=== PATIENT | female | born 1965 | race Caucasian/White ===

== ENCOUNTER 2024-07-17 22:40 | Emergency (ER) | payer OTHER, SELFPAY ==
--- NOTE | 2024-07-17 | ECG_ITS ---
Test Reason : FAST HR Blood Pressure : */* mmHG Vent. Rate : 109 BPM Atrial Rate : 109 BPM P-R Int : 158 ms QRS Dur : 94 ms QT Int : 344 ms P-R-T Axes : 54 21 75 degrees QTcB Int : 463 ms Sinus tachycardia Minimal voltage criteria for LVH, may be normal variant ( German product ) Nonspecific ST abnormality Abnormal ECG No previous ECGs available Referred By: Generic ED Physician Electronically Signed By: LINDA ROMEO
--- NOTE | ~2024-07-17 | XR_ITS ---
CLINICAL HISTORY: sob 2 view chest x-ray. Comparison: CT/MI/SR - CTA CHEST WOW RECON [id number] - 08/29/17 21:33 EDT Findings: No consolidation, pneumothorax, or effusion. Heart size normal. Impression: 1. No acute cardiopulmonary process. No focal pulmonary consolidation. This document has been electronically signed by: Ruddy Bustillo MD on 07/17/2024 23:25:13
[2024-07-17 22:43] VITALS: BP 155/68; PULSE 116; RESP 20; TEMP 37.2; O2SAT 95; BMI 39.2
[2024-07-17 23:08] LABS: Basophils Absolute Auto 0.1 X10*3/uL (0.0-0.2); Basophils Percent Auto 0.7 % (0-2); Eosinophils Absolute Auto 0.4 X10*3/uL (0.0-0.4); Eosinophils Percent Auto 3.9 % (0-4); Hematocrit 40.3 % (37.0-47.0); Hemoglobin 14.5 g/dl (12.0-16.0); Imm Gran Abs Auto 0.03 X10*3/uL (0.00-0.03); Imm Gran Pct Auto 0.3 % (0.0-0.4); Lymphocytes Absolute Auto 1.1 X10*3/uL (1.2-4.9); Lymphocytes Percent Auto 11.5 % (20-40); MANUAL DIFF FLAG NO; Mean Corpuscular Hemoglobin 30.9 pg (27.0-33.0); Mean Corpuscular Volume 85.9 fL (80.0-98.0); Mean Platelet Volume 9.3 fL (9.4-12.3); Monocytes Absolute Auto 0.7 X10*3/uL (0.1-1.2); Monocytes Percent Auto 8.1 % (2-11); Neutrophils Absolute Auto 6.9 x10*3/uL (2.0-8.3); Neutrophils Percent Auto 75.5 % (45-73); Platelet Count 264 X10*3/uL (160-400); Red Blood Count 4.69 X10*6/uL (4.20-5.50); Red Cell Distribution Width 12.8 % (11.0-16.0); White Blood Count 9.1 X10*3/uL (4.8-10.8)
[2024-07-17 23:23] LABS: Alanine Aminotransferase 34 U/L (0-31); Albumin Level 4.1 g/dL (3.5-5.0); Alkaline Phosphatase 109 U/L (39-117); Anion Gap 10 (12-20); Aspartate Amino Transferase 36 U/L (5-31); Bilirubin Total 0.4 mg/dL (0.0-1.0); Blood Urea Nitrogen 7 mg/dL (9-16); Calcium 9.4 mg/dL (8.4-10.2); Carbon Dioxide 24 mmol/L (22-29); Chloride 108 mmol/L (96-108); Creatinine Clr Calc Pharmacy 126.1; Estimated Glomerular Filt Rate > 60; Glucose Random 111 mg/dL (60-115); Lipase 17 U/L (8-78); Potassium 3.6 mmol/L (3.3-5.1); Sodium 138 mmol/L (135-145); Total Protein 7.6 g/dL (6.5-8.0)
[2024-07-17 23:45] LABS: Influenza A PCR NEGATIVE (Negative); Influenza B PCR NEGATIVE (Negative); Resp Syncy Virus RNA Qual PCR NEGATIVE (Negative); SARS COV2 PCR INHOUSE POSITIVE (Negative)
--- NOTE | 2024-07-18 01:21 | ED.GENADULT ---
HPI - General Adult General Chief complaint: General Medical Stated complaint: fever, elevated heart rate Time Seen by Provider: 07/18/24 01:21 History of Present Illness ED Provider: Tam ROB narrative: The patient is 59 year-old female who has been feeling acutely ill since about 04:00 this morning when she developed a sense of being feverish and also had a sense of having a stuffy nose and congestion and dizziness. She took ibuprofen and acetaminophen throughout the day. She also felt that her heart rate was going very fast. She has had subjective fevers, chills, and sweats. No adin chest pain. No nausea, vomiting, or abdominal pain. The patient reports a history of breast cancer many years ago. Her last COVID vaccine was about 2 years ago she estimates. Related Data Previous Rx's ?Medication ?Instructions ?Recorded nirmatrelvir 300 mg (150 mg See Rx Instructions PO .COMPLEX 07/18/24 x2)-ritonavir 100 mg tablet,dose #30 ea pack (Paxlovid) Allergies Allergy/AdvReac Type Severity Reaction Status Date / Time paclitaxel [From Taxol] Allergy Anaphylaxis Verified 07/17/24 22:46 Review of Systems Review of Systems: Yes all other systems are reviewed and are negative PMFSH Social History Social History Advance Directives: No Advance Directives Information Provided: Yes Do you have a plan to hurt others: No Plan Physical Exam ED Vital Signs: Vital Signs - 24 hr 07/17/24 22:43 07/18/24 02:02 07/18/24 02:03 Temperature 99 F 98.3 F 98.4 F Pulse Rate 116 H 82 82 Respiratory Rate 20 16 16 Blood Pressure 155/68 H 152/64 H 152/64 H Pulse Oximetry 95 99 99 Oxygen Delivery Method Room Air Room Air Room Air BMI result Body Mass Index 39.2 Const Other: The patient is awake, alert, pleasant, cooperative. She does not appear in obvious distress or seem obviously ill at the time that I interviewed her. [facility] Other: Face is symmetrical. Mucous membranes moist. Eyes General: appearance normal, both eyes and all related structures Neck Neck: Yes full ROM, Yes no lymphadenopathy and Yes no JVD Resp Effort & Inspection: normal respiratory effort Auscultation: clear to auscultation bilaterally Cardio Rate: regular rate Rhythm: regular rhythm Heart sounds: S1 normal heart sound present and S2 normal heart sound present GI Other: Abdomen is soft and nontender Skin Other: Skin is dry and unremarkable Neuro Other: The patient is awake and alert with a normal mental status. Cranial nerves are grossly intact. She moves extremities normally and seems grossly neurologically intact. Extrem Other: No peripheral edema Medical Decision Making Medical Decision Making MDM Narrative: The patient is a 59-year-old female who presents with an acute illness of less than 24 hours duration. She is testing positive for COVID. I think that is the source of her symptoms. She had initially been complaining of palpitations and tachycardia. Her heart rate when she arrived was 116. An EKG at 08/10/2057 shows sinus tachycardia at 109 beats per minute. When I examined the patient her heart rate was 88. Clinically the the patient does not look unstable or unwell. Her chest x-ray is negative. Her CBC and metabolic panel are unremarkable. I think her presentation is consistent with a an acute COVID infection. She would like to go on Paxlovid. Her only daily medications are lisinopril and hydrochlorothiazide. They do not seem to be any concerning interactions with Paxlovid. I will therefore prescribed Paxlovid. Unfortunately the patient does not seem to have a PCP at the moment. She tells me that she has insurance through her but that even with this insurance flowing to the doctor is very expensive and therefore she does not have a PCP. She says that she gets her lisinopril/hydrochlorothiazide refilled at urgent care. Lab Data 07/17/24 23:03 07/17/24 23:03 Labs: Lab Results 07/17/24 Range/Units 23:03 WBC 9.1 (4.8-10.8) X10*3/uL RBC 4.69 (4.20-5.50) X10*6/uL Hgb 14.5 (12.0-16.0) g/dl Hct 40.3 (37.0-47.0) % MCV 85.9 (80.0-98.0) fL MCH 30.9 (27.0-33.0) pg MCHC 36.0 H (31.0-35.0) g/dl RDW 12.8 (11.0-16.0) % Plt Count 264 (160-400) X10*3/uL MPV 9.3 L (9.4-12.3) fL Immature Gran % (Auto) 0.3 (0.0-0.4) % Neut % (Auto) 75.5 H (45-73) % Lymph % (Auto) 11.5 L (20-40) % Assumption % (Auto) 8.1 (2-11) % Eos % (Auto) 3.9 (0-4) % Baso % (Auto) 0.7 (0-2) % Lymph # (Auto) 1.1 L (1.2-4.9) X10*3/uL Assumption # (Auto) 0.7 (0.1-1.2) X10*3/uL Eos # (Auto) 0.4 (0.0-0.4) X10*3/uL Baso # (Auto) 0.1 (0.0-0.2) X10*3/uL Abs Immat Gran (auto) 0.03 (0.00-0.03) X10*3/uL Absolute Neuts (auto) 6.9 (2.0-8.3) x10*3/uL Absolute Nucleated RBC 0.000 (0.0-0.012) X10*3/uL Nucleated RBC % (auto) 0.0 (0.0-0.2) /100WBC Sodium 138 (135-145) mmol/L Potassium 3.6 (3.3-5.1) mmol/L Chloride 108 (96-108) mmol/L Carbon Dioxide 24 (22-29) mmol/L Anion Gap 10 L (12-20) BUN 7 L (9-16) mg/dL Creatinine 0.70 (0.5-1.4) mg/dL Estim Creat Clear Calc 126.1 Estimated GFR > 60 Random Glucose 111 (60-115) mg/dL Calcium 9.4 (8.4-10.2) mg/dL Total Bilirubin 0.4 (0.0-1.0) mg/dL AST 36 H (5-31) U/L ALT 34 H (0-31) U/L Alkaline Phosphatase 109 (39-117) U/L Total Protein 7.6 (6.5-8.0) g/dL Albumin 4.1 (3.5-5.0) g/dL Lipase 17 (8-78) U/L Influenza Type A (PCR) NEGATIVE (Negative) Influenza Type B (PCR) NEGATIVE (Negative) RSV RNA Qual (PCR) NEGATIVE (Negative) SARS-CoV-2 RNA (RT-PCR) POSITIVE A (Negative) Discharge Plan Discharge Clinical Impression: COVID Patient Disposition: Home, Self-Care Instructions: COVID-19 (Coronavirus Disease 2019) (ED) Additional Instructions: You have tested positive for COVID today. I have sent a prescription for Paxlovid to your pharmacy. Please start taking this medication as prescribed in the morning. This medication should be taken 2 times a day for 5 days. The medication is unusual because it consists of 2 medications, nirmatrelvir and ritonavir. You will be taking 2 pills of nirmatrelvir and 1 pill of ritonovir with each dose. Therefore you will be taking 3 pills with each dose (3 pills in the morning and 3 pills in the evening). You may use ibuprofen and/or acetaminophen as needed for aches and pains and fevers. Rest and take it easy. Drink a lot of fluids. Return to the emergency room if worse Prescriptions: New Paxlovid 300 mg (150 mg x 2)-100 mg tablets,dose pack See Rx Instructions .ROUTE .COMPLEX Qty: 30 0RF Rx Instructions: take TWO 150 mg tablets of nirmatrelvir with ONE 100 mg tablet of ritonavir twice daily for 5 days Interventions: ED Discharge Assessment Last Done: 07/18/24 02:03 Discharge Date/Time: 07/18/24 02:03 Print Language: Nigerien
[2024-07-18 02:02] VITALS: BP 152/64; PULSE 82; RESP 16; TEMP 36.8; O2SAT 99
[2024-07-18 02:03] VITALS: BP 152/64; PULSE 82; RESP 16; TEMP 36.9; O2SAT 99
--- OUTSIDE RECORDS SUMMARY | 2024-07-18 02:04 | XMS_ITS | Clinical Summary ---
Author Organization [facility] Address [address] [place] [address] Care Team Providers Care Defence Force Senior Officer Name Role Phone Unavailable Primary Care Provider Unavailabl e Surgical History Surgery Date Site/Laterality Comments CHOLECYSTECTOMY 1989 PROCEDURE: HISTORICAL CHOLECYSTECTOMY SECTION 1989 PROCEDURE: [facility] Medical History Medical History Date Comments Asthma DX:Asthma; COMME NT: exercise induced Unspecified asthma(493.90) 12/05/2007 DX:Un specified asthma(493.90); COMMENT: EXERCISE INDUCED Obesity, unspecified 12/05/2007 DX:Obesity, unspecified Essential hypertension, benign 12/05/2007 D X:Essential hypertension, benign Family History Relation Name Status Comments Brother 1 (Age 31) MS Brother 2 Alive MANIC DEPRESSIV E Brother 3 Alive Brother 4 Alive Daughter Alive [id number] RING LOSS INFANT Father Alive GLAUCOMA Maternal Grandfather (Age 69) IN Maternal Grandmother (Age 62) IN Mother Alive CHF, DM, CHOL, HTN, BIPOLAR Paternal Grandfather (Age 81) EM PHYSEMA, PANCREATIC CA Paternal Grandmother (Age 60'S) IN Sister Alive Son 1 Alive 1983-HERNAN- AD HD Son 2 Alive 1986-MORENA- THMA Son 3 Alive 1987-CHRISTIA-, ADHD Social History Tobacco Use Types Packs/Day Years Used Date Smoking Tobacco: Every Day Cigarettes Alcohol Use Standard Drinks/Week Comments Yes 0 (1 standard drink = 0.6 oz pur e alcohol) Sex and Gender Information Value Date Recorded Sex Assigned at Not on file Gender Identity Not on file Sexual Orientation Not on file Obstetrics History Plan of Treatment Health Maintenance Due Date Last Done Comments Breast Cancer Screening 1965 Pneumococcal Vaccine: Pediat rics (0 to 5 Years) and At-Risk Patients (6 to 64 Years) (1 of 2 - PCV) 01/12/1970 DTaP,Tdap,and Td Vaccines (1 - Tdap) 01/12/1983 Cervical Cancer Screening: P ap Smear 01/12/1985 Hepatitis B Vaccines (2 of 3 - 19+ 3-dose series) 01/02/2008 12/05/2007 Zoster Vaccines (1 of 2) 01/12/2014 Cholesterol Screening (Lipid Panel) 07/20/2023 Colorectal Cancer Screening: Colonoscopy 07/20/2023 Depression Screening 07/20/2023 HIV Screening 07/20/2023 Hepatitis C Screening 07/20/2023 Hypertension/CHF/CAD Annual BMP Blood Test 07/20/2023 Social Influencers of Health Screening 07/20/2023 RSV Immunization Patients 60 + Years Old (1 - Risk 60-74 years 1-dose series) 2024 COVID-19 Vaccine ( - 2023-2 5 season) 2024 Influenza Vaccine (#1) 2024 HIB Vaccines Aged Out No longer eligi ble based on patient's age to complete this topic HPV Vaccines Aged Out No longer eligi ble based on patient's age to complete this topic Hepatitis A Vaccines Aged Out No long er eligible based on patient's age to complete this topic IPV Vaccines Aged Out No longer eligi ble based on patient's age to complete this topic MMR Vaccines Aged Out No longer eligi ble based on patient's age to complete this topic Meningococcal ACWY Vaccine Aged Out N o longer eligible based on patient's age to complete this topic RSV Immunization Patients Un tonja 20 months Aged Out No longer eligible b ased on patient's age to complete this topic Varicella Vaccines Aged Out No longer eligible based on patient's age to complete this topic
== END 2024-07-18 02:03 | disposition home or self-care (01) ==
PROVIDERS: Emergency Provider Emergency Medicine
DX: U07.1 COVID-19 (principal); R50.9 Fever, unspecified; R00.0 Tachycardia, unspecified
CPT/HCPCS: 0241U; 71046; 80053; 83690; 85025; 93005; 99283; 99284

== ENCOUNTER → 2024-07-17 22:50 | Outpatient (BNV) | payer SELFPAY | PROVIDERS: Visit Provider Radiology Diagnostic Radiology | DX: R06.02 Shortness of breath (principal) | CPT/HCPCS: 71046 ==

== ENCOUNTER → 2024-07-17 22:58 | Outpatient (BNV) | payer OTHER, SELFPAY | PROVIDERS: Emergency Provider Emergency Medicine; Visit Provider Internal Medicine | DX: R94.31 Abnormal electrocardiogram [ECG] [EKG] (principal) | CPT/HCPCS: 93010 ==

== ENCOUNTER 2024-09-25 11:24 | Emergency (ER) | payer OTHER, SELFPAY ==
--- NOTE | ~2024-09-25 | XR_ITS ---
EXAMINATION: XR ABDOMEN 1 VIEW (KUB) HISTORY: constipation COMPARISON: There are no prior studies for comparison. FINDINGS: Three supine views of the abdomen are submitted. The bowel gas pattern is unremarkable, without evidence of mechanical obstruction. There is a small to moderate amount of stool throughout the colon. No abnormal calcifications are identified. There are no abnormal soft tissue masses. There is degenerative disc disease of the spine. XR/XR KUB IMPRESSION: Small to moderate amount of stool throughout the colon. Electronically signed by: Betito Medley MD 09/25/2024 01:16 PM EDT
[2024-09-25 11:41] VITALS: BP 147/56; PULSE 94; RESP 16; TEMP 37; O2SAT 96; BMI 36.6
--- NOTE | 2024-09-25 11:46 | ED_ITS ---
HPI - Female Genitourinary General Chief complaint: Urogenital-Female Stated complaint: unable to urinate Time Seen by Provider: 09/25/24 16:11 Source: patient Mode of arrival: ambulatory Limitations: no limitations History of Present Illness ED Provider: HPI Narrative: Patient with stress incontinence feels some something not right and on and she had not urinating right for last 3 days has low back pain afraid that patient might have infection no fever no chills no nausea no vomiting Related Data Previous Rx's ?Medication ?Instructions ?Recorded nirmatrelvir 300 mg (150 mg See Rx Instructions PO .COMPLEX 07/18/24 x2)-ritonavir 100 mg tablet,dose #30 ea pack (Paxlovid) Allergies Allergy/AdvReac Type Severity Reaction Status Date / Time paclitaxel [From Taxol] Allergy Anaphylaxis Verified 09/25/24 11:43 Review of Systems 2 Review of Systems: Yes all other systems are reviewed and are negative Physical Exam 2 Vital Signs: Vital Signs: Last Vital Signs Temp 97.5 F 09/25/24 17:44 Pulse 80 09/25/24 17:44 Resp 14 09/25/24 17:44 BP 149/72 H 09/25/24 17:44 Pulse Ox 96 09/25/24 17:44 O2 Del Method Room Air 09/25/24 17:44 BMI result Body Mass Index 36.6 Appearance: Alert. Oriented X3. No acute distress. Obese Eyes: PERRLA, No Nystagmus ENT: Pharynx normal. Oral Mucosa moist Neck: Normal inspection. Neck supple. CVS: Normal heart rate and rhythm. Pulses normal. Respiratory: No respiratory distress. Equal air entry bilateral, no wheezing/rales/rhonchi Abdomen: Soft and nontender. Bowel sounds are present, no mass palpable, no CVA tenderness Skin: Skin warm and dry. Normal skin color. Normal skin turgor. Extremities: No lower extremity edema. No calf tenderness Neuro: Oriented X 3. No motor deficit. No sensory deficit.No cerebellar signs , cranial nerves II-XII intact Course Course Course Narrative: RME: 59-year-old female presents to the ED for urinary retention for 3 days. Patient is incontinent at baseline. Patient states last bowel movement 2 days. Bladder scan, labs, XRay ordered Medical Decision Making Medical Decision Making MDM Narrative: Patient with no signs of infection urine is negative for UTI likely symptoms are from urinary incontinence advised to follow with urologist bladder scan was showed no urine post voidal Lab Data MDM Lab Attestation statement: I reviewed the patient's lab results. 09/25/24 11:56 09/25/24 11:56 Labs: Lab Results 09/25/24 09/25/24 Range/Units 11:56 17:18 WBC 7.9 (4.8-10.8) X10*3/uL RBC 4.31 (4.20-5.50) X10*6/uL Hgb 13.6 (12.0-16.0) g/dl Hct 38.5 (37.0-47.0) % MCV 89.3 (80.0-98.0) fL MCH 31.6 (27.0-33.0) pg MCHC 35.3 H (31.0-35.0) g/dl RDW 13.1 (11.0-16.0) % Plt Count 240 (160-400) X10*3/uL MPV 9.8 (9.4-12.3) fL Immature Gran % (Auto) 0.4 (0.0-0.4) % Neut % (Auto) 62.6 (45-73) % Lymph % (Auto) 24.9 (20-40) % Grainger % (Auto) 5.4 (2-11) % Eos % (Auto) 5.9 H (0-4) % Baso % (Auto) 0.8 (0-2) % Lymph # (Auto) 2.0 (1.2-4.9) X10*3/uL Grainger # (Auto) 0.4 (0.1-1.2) X10*3/uL Eos # (Auto) 0.5 H (0.0-0.4) X10*3/uL Baso # (Auto) 0.1 (0.0-0.2) X10*3/uL Abs Immat Gran (auto) 0.03 (0.00-0.03) X10*3/uL Absolute Neuts (auto) 5.0 (2.0-8.3) x10*3/uL Absolute Nucleated RBC 0.000 (0.0-0.012) X10*3/uL Nucleated RBC % (auto) 0.0 (0.0-0.2) /100WBC Sodium 141 (135-145) mmol/L Potassium 3.4 (3.3-5.1) mmol/L Chloride 107 (96-108) mmol/L Carbon Dioxide 25 (22-29) mmol/L Anion Gap 12 (12-20) BUN 11 (9-16) mg/dL Creatinine 0.65 (0.5-1.4) mg/dL Estim Creat Clear Calc 134.9 Estimated GFR > 60 Random Glucose 142 H (60-115) mg/dL Calcium 9.0 (8.4-10.2) mg/dL Total Bilirubin 0.6 (0.0-1.0) mg/dL AST 39 H (5-31) U/L ALT 34 H (0-31) U/L Alkaline Phosphatase 93 (39-117) U/L Total Protein 6.9 (6.5-8.0) g/dL Albumin 3.7 (3.5-5.0) g/dL Urine Color Yellow Urine Appearance Clear Urine pH 5.5 (5.0-9.0) Ur Specific Mcandrews 1.015 (1.005-1.025) Urine Protein Negative (Neg-Trace) mg/dL Urine Glucose (UA) Negative (Negative) mg/dL Urine Ketones Negative (Negative) mg/dL Urine Blood Negative (Negative) Urine Nitrite Negative (Negative) Ur Leukocyte Esterase Negative (Negative) Discharge Plan Discharge Clinical Impression: Dysuria Patient Disposition: Home, Self-Care Instructions: Dysuria (ED) Additional Instructions: Your urine and blood workup is negative for any infection Drink plenty of fluids Follow up with your urologist Prescriptions: No Action Paxlovid 300 mg (150 mg x 2)-100 mg tablets,dose pack See Rx Instructions .ROUTE .COMPLEX Qty: 30 0RF Rx Instructions: take TWO 150 mg tablets of nirmatrelvir with ONE 100 mg tablet of ritonavir twice daily for 5 days Interventions: ED Discharge Assessment Last Done: 09/25/24 17:44 Discharge Date/Time: 09/25/24 17:45 Print Language: Maltese
[2024-09-25 12:05] LABS: MANUAL DIFF FLAG NO
[2024-09-25 12:07] LABS: Basophils Absolute Auto 0.1 X10*3/uL (0.0-0.2); Basophils Percent Auto 0.8 % (0-2); Eosinophils Absolute Auto 0.5 X10*3/uL (0.0-0.4); Eosinophils Percent Auto 5.9 % (0-4); Hematocrit 38.5 % (37.0-47.0); Hemoglobin 13.6 g/dl (12.0-16.0); Imm Gran Abs Auto 0.03 X10*3/uL (0.00-0.03); Imm Gran Pct Auto 0.4 % (0.0-0.4); Lymphocytes Percent Auto 24.9 % (20-40); Mean Corpuscular HGB Conc 35.3 g/dl (31.0-35.0); Mean Corpuscular Hemoglobin 31.6 pg (27.0-33.0); Mean Corpuscular Volume 89.3 fL (80.0-98.0); Mean Platelet Volume 9.8 fL (9.4-12.3); Monocytes Absolute Auto 0.4 X10*3/uL (0.1-1.2); Monocytes Percent Auto 5.4 % (2-11); Neutrophils Percent Auto 62.6 % (45-73); Platelet Count 240 X10*3/uL (160-400); Red Blood Count 4.31 X10*6/uL (4.20-5.50); Red Cell Distribution Width 13.1 % (11.0-16.0); White Blood Count 7.9 X10*3/uL (4.8-10.8)
[2024-09-25 12:37] LABS: Alanine Aminotransferase 34 U/L (0-31); Albumin Level 3.7 g/dL (3.5-5.0); Anion Gap 12 (12-20); Aspartate Amino Transferase 39 U/L (5-31); Bilirubin Total 0.6 mg/dL (0.0-1.0); Blood Urea Nitrogen 11 mg/dL (9-16); Carbon Dioxide 25 mmol/L (22-29); Chloride 107 mmol/L (96-108); Creatinine Clr Calc Pharmacy 134.9; Estimated Glomerular Filt Rate > 60; Glucose Random 142 mg/dL (60-115); Potassium 3.4 mmol/L (3.3-5.1); Sodium 141 mmol/L (135-145); Total Protein 6.9 g/dL (6.5-8.0)
[2024-09-25 13:47] LABS: Alkaline Phosphatase 93 U/L (39-117)
--- OUTSIDE RECORDS SUMMARY | 2024-09-25 14:25 | XMS_ITS ---
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 :1965???Age:59 Y???Sex:Female D ate:07/20/2024 Address:[address] [place] [address] Subjective: * Chief Complaints: * ???1. 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 * Medical History:? Objective: * Vitals:? Assessment: Plan: * Treatment: * Images: Billing Information: * Visit Code:? * Procedure Codes:? * Electronic signature of Olivia Dewitt MD on 09/25/2024 at 02:25 PM EDT Sign off status: Pending * Appointment Provider:?Soni Dewitt M.D. Date:?07/20/2024 Generated for Judei ubaldo/Dilshad/eTransmitting on:?09/25/2024 02:25 PM EDT
--- OUTSIDE RECORDS SUMMARY | 2024-09-25 14:25 | XMS_ITS | Patient Health Record ---
Author Organization [facility] Address [address] [place] [address] Care Team Providers Care Toxicology Teacher Name Role Phone Soni Dewitt Unavailable [phone] Reason For Referral No Information Plan Of Treatment Next Appt Details Provider Name:Sonianand marcos, 01/10/2025 01:40:00 PM, [address], [address], [place], [address], Insurance Providers Payer Name Payer Address Payer Phone Subscriber Number Group Number Insured Name Patient Relationship to Insured Coverage Start Date Coverage End Date [employer] [address] CODIE DRUMMOND [id number] YUE FAJARDO Self - patient is the insured
--- OUTSIDE RECORDS SUMMARY | 2024-09-25 14:26 | XMS_ITS | Clinical Summary ---
Author Organization [facility] Address [address] [place] [address] Care Team Providers Care Analysis Consultant Name Role Phone Unavailable Primary Care Provider Unavailabl e Surgical History Surgery Date Site/Laterality Comments CHOLECYSTECTOMY 1989 PROCEDURE: HISTORICAL CHOLECYSTECTOMY SECTION 1989 PROCEDURE: [place] DELIVERY ONLY Medical History Medical History Date Comments Asthma DX:Asthma; COMME NT: exercise induced Unspecified asthma(493.90) 12/05/2007 DX:Un specified asthma(493.90); COMMENT: EXERCISE INDUCED Obesity, unspecified 12/05/2007 DX:Obesity, unspecified Essential hypertension, benign 12/05/2007 D X:Essential hypertension, benign Family History Relation Name Status Comments Brother 1 (Age 31) MS Brother 2 Alive MANIC DEPRESSIV E Brother 3 Alive Brother 4 Alive Daughter Alive [id number] RING LOSS Father Alive GLAUCOMA Maternal Grandfather (Age 69) OK Maternal Grandmother (Age 62) OK Mother Alive CHF, DM, CHOL, HTN, BIPOLAR Paternal Grandfather (Age 81) EM PHYSEMA, PANCREATIC CA Paternal Grandmother (Age 60'S) OK Sister Alive Son 1 Alive 1983-HERNAN- AD HD Son 2 Alive 1986-MORENA- THMA Son 3 Alive 1987-CHRISTIA-, ADHD Social History Tobacco Use Types Packs/Day Years Used Date Smoking Tobacco: Every Day Cigarettes Alcohol Use Standard Drinks/Week Comments Yes 0 (1 standard drink = 0.6 oz pur e alcohol) Comments Unknown Sex and Gender Information Value Date Recorded Sex Assigned at Not on file Legal Sex Female 8:08 AM EST Gender Identity Not on file Sexual Orientation Not on file Obstetrics History Plan of Treatment Health Maintenance Due Date Last Done Comments Breast Cancer Screening 1965 DTaP,Tdap,and Td Vaccines (1 - Tdap) 01/12/1983 Pneumococcal Vaccine: 50+ Ye ars (1 of 2 - PCV) 01/12/1983 Pneumococcal Vaccine: Pediat rics (0 to 5 Years) and At-Risk Patients (6 to 64 Years) (1 of 2 - PCV) 01/12/1983 Cervical Cancer Screening: P ap Smear 01/12/1985 Hepatitis B Vaccines (2 of 3 - 19+ 3-dose series) 01/02/2008 12/05/2007 Zoster Vaccines (1 of 2) 01/12/2014 Cholesterol Screening (Lipid Panel) 07/20/2023 Colorectal Cancer Screening: Colonoscopy 07/20/2023 Depression Screening 07/20/2023 HIV Screening 07/20/2023 Hepatitis C Screening 07/20/2023 Hypertension/CHF/CAD Annual BMP Blood Test 07/20/2023 Social Influencers of Health Screening 07/20/2023 RSV Immunization Adult Patie nts (1 - Risk 60-74 years 1-dose series) [...] patient's age to complete this topic Meningococcal B Vacine Aged Out No lo nger eligible based on patient's age to complete this topic RSV Immunization Patients Un tonja 20 months Aged Out No longer eligible b ased on patient's age to complete this topic Varicella Vaccines Aged Out No longer eligible based on patient's age to complete this topic
[2024-09-25 16:49] VITALS: BP 149/72; PULSE 80; RESP 14; TEMP 36.4; O2SAT 96
[2024-09-25 17:25] LABS: Appearance Urine Clear; Color Urine Yellow; Glucose Urine UA Negative (Negative); Leukocyte Esterase Urine Negative (Negative); Nitrite Urine Negative (Negative); PH 5.5 (5.0-9.0); Specific Gravity - Urine 1.015 (1.005-1.025); Urine Blood Negative (Negative); Urine Ketones Negative (Negative); Urine Protein Negative (Neg-Trace)
[2024-09-25 17:44] VITALS: BP 149/72; PULSE 80; RESP 14; TEMP 36.4; O2SAT 96
== END 2024-09-25 17:45 | disposition home or self-care (01) ==
PROVIDERS: Physician Assistant; Emergency Provider Internal Medicine; PCP Internal Medicine
DX: R30.0 Dysuria (principal); K59.00 Constipation, unspecified; R33.9 Retention of urine, unspecified; M54.50 Low back pain, unspecified; R32 Unspecified urinary incontinence
CPT/HCPCS: 36415; 51701; 51798; 74018; 80053; 81003; 85025; 99283; 99285

== ENCOUNTER → 2024-09-25 12:16 | Outpatient (BNV) | payer OTHER, SELFPAY | PROVIDERS: PCP Internal Medicine; Visit Provider Radiology Diagnostic Radiology | DX: R19.5 Other fecal abnormalities (principal) | CPT/HCPCS: 74018 ==

== ENCOUNTER 2025-02-09 15:27 | Emergency (ER) | payer OTHER, SELFPAY ==
[2025-02-09] VITALS (10 sets, daily range): BP systolic 149–196; BP diastolic 67–89; PULSE 84–100; RESP 15–18; TEMP 36.6–36.8; O2SAT 95–98; BMI 33.4
--- NOTE | ~2025-02-09 | XR_ITS ---
CLINICAL HISTORY: chest pain 2 view chest x-ray Comparison: Chest x-ray from 07/17/2024 Findings: No consolidation, pneumothorax, or pleural effusion. Imaged mediastinum in the imaged osseous structures appear unchanged. IMPRESSION: No consolidation. This document has been electronically signed by: Rio Handley MD on 02/09/2025 19:09:43
--- NOTE | 2025-02-09 15:59 | ED_ITS ---
HPI - General Adult General Chief complaint: Chest Pain Stated complaint: Sent by Urgent Care; ? heart attack Time Seen by Provider: 02/09/25 17:52 Source: patient Mode of arrival: ambulatory Limitations: no limitations History of Present Illness ED Provider: HPI narrative: 60-year-old woman presenting with chest pain after an argument with the landlord which is an ongoing issue according to her, and she was caring her bag in his sort of overhead position she states she was having left arm numbness she also has anxiety she said down but continues to have these symptoms and then by the time she presents to the ER her symptoms mostly resolved. She states she has history of high blood pressure but because she does not see her PCP because she owes PCP money as no money for co-pay has not seen PCP for at least 2 years and does not take her high blood pressure medications she is supposed to be on hydrochlorothiazide and I lisinopril. Quit smoking 14 years ago. Related Data Previous Rx's ?Medication ?Instructions ?Recorded nirmatrelvir 300 mg (150 mg See Rx Instructions PO .CO MPLEX 07/18/24 x2)-ritonavir 100 mg tablet,dose #30 ea pack (Paxlovid) hydrochlorothiazide 12.5 mg capsule 12.5 mg PO DAILY # 90 caps 02/09/25 lisinopril 10 mg tablet 10 mg PO DAILY #90 tabs 01/20 08/15 Allergies Allergy/AdvReac Type Severity Reaction Status Date / Time paclitaxel (From Taxol) Allergy Anaphylaxis Verified 02/09/25 15:57 Review of Systems 2 Constitutional: Constitutional: Reports as per [facility] Social History Social History Advance Directives: No Advance Directives Information Provided: No Physical Exam ED Vital Signs: Vital Signs - 24 hr 02/09/25 15:55 02/09/25 17:29 02/09/25 18:00 Temperature 98.3 F 98.3 F Pulse Rate 98 94 84 Respiratory Rate 18 18 17 Blood Pressure 196/89 H 162/78 H 158/77 H Pulse Oximetry 97 97 98 Oxygen Delivery Method Room Air Room Air Room Air 02/09/25 19:31 02/09/25 20:34 02/09/25 22:02 Temperature 98.3 F Pulse Rate 94 100 Respiratory Rate 18 Blood Pressure 178/83 H 172/74 H 156/69 H Pulse Oximetry 95 Oxygen Delivery Method Room Air 02/09/25 22:04 02/09/25 22:22 Temperature 97.8 F Pulse Rate 91 Respiratory Rate 15 Blood Pressure 156/69 H 149/67 H Pulse Oximetry 95 Oxygen Delivery Method Room Air BMI result Body Mass Index 33.4 Const Other: * Gen: ?Overall well-appearing patient * HEENT: PERRLA, EOMI, MMM, * Neck: Supple, no LAD * CV: RRR, no obvious murmurs appreciated * Resp: ?No wheezing rales rhonchi no stridor moving air well * Abd: ?Bowel sounds are present, no tenderness no rebound no rigidity * MSK: FROM, strength 5/5 all extremities * Skin: Warm, dry, intact, * Neuro: ?Alert and oriented x3, moving upper and lower extremities symmetrically, no obvious facial asymmetry noted Course Course Course Narrative: RME, this is a rapid medical exam performed by Harmeet Chase please refer to primary provider for complete H&P- 60 year old female presents for evaluation of chest pain that radiated to her left arm. Symptoms started while she was walking after an argument with her landlord. Plan for cardiac workup Medications Administered Generic Name Dose Route Start Last Admin Trade Name Freq PRN Reason Stop Dose Admin Nitroglycerin 0.4 mg 02/09/25 18:38 02/09/25 19:31 Nitroglycerin 0.4 Mg Tab.Subl SUBLINGUAL 0.4 mg [id number] PRN Administration Chest Pain Discontinued Medications Generic Name Dose Route Start Last Admin Trade Name Freq PRN Reason Stop Dose Admin Aspirin 81 mg 02/09/25 18:38 02/09/25 19:01 Aspirin 81 Mg Tab.Chew PO 02/09/25 18:39 81 mg ONCE ONE Administration Diazepam 4 mg 02/09/25 19:26 02/09/25 19:34 Diazepam 2 Mg Tablet PO 02/09/25 19:27 4 mg ONCE ONE Administration Hydrochlorothiazide 12.5 mg 02/09/25 21:25 02/09/25 22:02 Hydrochlorothiazide 12.5 Mg Tablet PO 02/09/25 21:26 12.5 mg ONCE ONE Administration Protocol Lisinopril 10 mg 02/09/25 21:25 02/09/25 22:04 Lisinopril 10 Mg Tablet PO 02/09/25 21:26 10 mg ONCE ONE Administration Protocol Medical Decision Making Medical Decision Making MDM Narrative: Patient is presenting with chest pain with differential diagnosis for consideration as below, her heart score is a 5, we will continue trending her troponin the 1st troponin is elevated, possibly stress-induced after an argument, she is also noncompliant with the medications, has cardiac risk factors, we will also obtain D-dimer she was tachycardic with chest pain as well, I will recommend admission based on heart score. 21:26 I spoke with the hospitalist Dr. Cade regarding my consideration for admission of this patient based on heart score and lack of access to healthcare, he recommended we obtain a 3rd cardiac enzyme and then we will take it from there, possibly consult with Cardiology, possibly admission. She is not going to have a stress test over the weekend. 1114: discussed with Dr. King, she will f/o on OPB, pt updated as well Differential Diagnosis Differential Diagnoses: The differential diagnosis associated with the presentation includes (ACS, pneumothorax, aortic dissection, PE, Boerhaave syndrome) Admission/Observation Consideration of admission/observation: Escalation of care including admission/observation considered Consult Healthcare Provider Management of the patient was discussed with: Hospitalist (Dr. Cade) and Accounts Payable Or Receivable Clerk (Dr. King) Lab Data [facility] Lab Attestation statement: I reviewed the patient's lab results. 02/09/25 16:22 02/09/25 16:22 Labs: Lab Results 02/09/25 02/09/25 02/09/25 Range/Units 16:22 18:55 19:51 WBC 10.3 (4.8-10.8) X10*3/uL RBC 4.55 (4.20-5.50) X10*6/uL Hgb 14.2 (12.0-16.0) g/dl Hct 40.3 (37.0-47.0) % MCV 88.6 (80.0-98.0) fL MCH 31.2 (27.0-33.0) pg MCHC 35.2 H (31.0-35.0) g/dl RDW 13.3 (11.0-16.0) % Plt Count 256 (160-400) X10*3/uL MPV 9.6 (9.4-12.3) fL Immature Gran % (Auto) 0.5 H (0.0-0.4) % Neut % (Auto) 69.0 (45-73) % Lymph % (Auto) 21.7 (20-40) % [place] % (Auto) 6.6 (2-11) % Eos % (Auto) 1.7 (0-4) % Baso % (Auto) 0.5 (0-2) % Lymph # (Auto) 2.2 (1.2-4.9) X10*3/uL [place] # (Auto) 0.7 (0.1-1.2) X10*3/uL Eos # (Auto) 0.2 (0.0-0.4) X10*3/uL Baso # (Auto) 0.1 (0.0-0.2) X10*3/uL Abs Immat Gran (auto) 0.05 H (0.00-0.03) X10*3/uL Absolute Neuts (auto) 7.1 (2.0-8.3) x10*3/uL Absolute Nucleated RBC 0.000 (0.0-0.012) X10*3/uL Nucleated RBC % (auto) 0.0 (0.0-0.2) /100WBC D-Dimer High Sensitivty < 150 NG/ML Sodium 141 (135-145) mmol/L Potassium 4.0 (3.3-5.1) mmol/L Chloride 106 (96-108) mmol/L Carbon Dioxide 27 (22-29) mmol/L Anion Gap 12 (12-20) BUN 10 (9-16) mg/dL Creatinine 0.71 (0.5-1.4) mg/dL Estim Creat Clear Calc 102.8 Estimated GFR > 60 Random Glucose 109 (60-115) mg/dL Calcium 9.4 (8.4-10.2) mg/dL Total Bilirubin 0.7 (0.0-1.0) mg/dL AST 63 H (5-31) U/L ALT 47 H (0-31) U/L Alkaline Phosphatase 104 (39-117) U/L Troponin I High Sens 25.7 H 28.1 H (<3.5-17.0) ng/L Total Protein 7.3 (6.5-8.0) g/dL Albumin 4.2 (3.5-5.0) g/dL Lipase 17 (8-78) U/L 02/09/25 Range/Units 22:09 WBC (4.8-10.8) X10*3/uL RBC (4.20-5.50) X10*6/uL Hgb (12.0-16.0) g/dl Hct (37.0-47.0) % MCV (80.0-98.0) fL MCH (27.0-33.0) pg MCHC (31.0-35.0) g/dl RDW (11.0-16.0) % Plt Count (160-400) X10*3/uL MPV (9.4-12.3) fL Immature Gran % (Auto) (0.0-0.4) % Neut % (Auto) (45-73) % Lymph % (Auto) (20-40) % [place] % (Auto) (2-11) % Eos % (Auto) (0-4) % Baso % (Auto) (0-2) % Lymph # (Auto) (1.2-4.9) X10*3/uL [place] # (Auto) (0.1-1.2) X10*3/uL Eos # (Auto) (0.0-0.4) X10*3/uL Baso # (Auto) (0.0-0.2) X10*3/uL Abs Immat Gran (auto) (0.00-0.03) X10*3/uL Absolute Neuts (auto) (2.0-8.3) x10*3/uL Absolute Nucleated RBC (0.0-0.012) X10*3/uL Nucleated RBC % (auto) (0.0-0.2) /100WBC D-Dimer High Sensitivty NG/ML Sodium (135-145) mmol/L Potassium (3.3-5.1) mmol/L Chloride (96-108) mmol/L Carbon Dioxide (22-29) mmol/L Anion Gap (12-20) BUN (9-16) mg/dL Creatinine (0.5-1.4) mg/dL Estim Creat Clear Calc Estimated GFR Random Glucose (60-115) mg/dL Calcium (8.4-10.2) mg/dL Total Bilirubin (0.0-1.0) mg/dL AST (5-31) U/L ALT (0-31) U/L Alkaline Phosphatase (39-117) U/L Troponin I High Sens 28.2 H (<3.5-17.0) ng/L Total Protein (6.5-8.0) g/dL Albumin (3.5-5.0) g/dL Lipase (8-78) U/L Independent Interpretation I performed an independent interpretation of an: EKG ([address]-T changes to suspect underlying ACS) and Plain X-Ray (My independent chest xray interpretation: Lungs: Lungs are clear bilaterally without evidence of focal consolidation, pleural effusion, or pneumothorax. Cardiac silhouette is unremarkable, no obvious mediastinal widening, no obvious bony abnormalities such as fractures. Impression: Normal chest X-r) Radiology Impression Discussion of test interpretation with radiology: I have reviewed the radiologist's reading. Chronic Conditions Patient?s care impacted by: Hypertension Scores Heart Score History: -1- moderately suspicious ECG: -0- normal Age: -1- >45 - <65 Risk factory: -2- 3 or more risk factors or treated atherosclerosis Troponin: -1- >1 - <3x normal limit Score: 5 Risk: 16.6% Critical Care Time Critical Care Time Critical Care Time: Yes Total Critical Care Time: 35 Attestation: Time is exclusive of separately billable procedures. Time includes: direct patient care, patient reassessment, coordination of patient care, interpretation of data (laboratory data, pulse oximetry, arterial blood gases and chest xrays), review of patient's medical records, medical consultation and documentation of patient care. Procedures excluded from critical care time: central intravenous line placement and electrocardiography. Discharge Plan Discharge Clinical Impression: Chest pain, Hypertension, poor control Patient Disposition: Home, Self-Care Additional Instructions: Evaluated with chest pain, chest x-ray reassuring, slightly elevated troponin but it remained Lat this is likely slight demand from stress, but difficult to tell it may also be your baseline and I have not had prior cardiac enzymes, I have been speaking with our hospitalist team and manager philosophy and I would like you to follow up with the manager philosophy, I provided your number to Dr. King I would like you to take her medications regular basis follow up with the Cardiology you may need a stress test worsening symptoms or concerns come back to the ER Prescriptions: New lisinopril 10 mg tablet 10 mg PO DAILY Qty: 90 0RF hydrochlorothiazide 12.5 mg capsule 12.5 mg PO DAILY Qty: 90 0RF No Action Paxlovid 300 mg (150 mg x 2)-100 mg tablets,dose pack See Rx Instructions .ROUTE .COMPLEX Qty: 30 0RF Rx Instructions: take TWO 150 mg tablets of nirmatrelvir with ONE 100 mg tablet of ritonavir twice daily for 5 days Referrals: Christian King MD [Physician, Cardiology] - 10 days Print Language: East Timorese
[2025-02-09 16:27] LABS: MANUAL DIFF FLAG NO
[2025-02-09 16:29] LABS: Hematocrit 40.3 % (37.0-47.0); Hemoglobin 14.2 g/dl (12.0-16.0); Imm Gran Abs Auto 0.05 X10*3/uL (0.00-0.03); Imm Gran Pct Auto 0.5 % (0.0-0.4); Lymphocytes Absolute Auto 2.2 X10*3/uL (1.2-4.9); Mean Corpuscular HGB Conc 35.2 g/dl (31.0-35.0); Mean Corpuscular Hemoglobin 31.2 pg (27.0-33.0); Mean Corpuscular Volume 88.6 fL (80.0-98.0); NRBC Abs Auto 0.000 X10*3/uL (0.0-0.012); NRBC Pct Auto 0.0 /100WBC (0.0-0.2); Platelet Count 256 X10*3/uL (160-400); Red Blood Count 4.55 X10*6/uL (4.20-5.50); White Blood Count 10.3 X10*3/uL (4.8-10.8)
[2025-02-09 16:46] LABS: Alanine Aminotransferase 47 U/L (0-31); Albumin Level 4.2 g/dL (3.5-5.0); Alkaline Phosphatase 104 U/L (39-117); Anion Gap 12 (12-20); Aspartate Amino Transferase 63 U/L (5-31); Blood Urea Nitrogen 10 mg/dL (9-16); Calcium 9.4 mg/dL (8.4-10.2); Carbon Dioxide 27 mmol/L (22-29); Chloride 106 mmol/L (96-108); Creatinine Clr Calc Pharmacy 102.8; Estimated Glomerular Filt Rate > 60; Lipase 17 U/L (8-78); Potassium 4.0 mmol/L (3.3-5.1); Sodium 141 mmol/L (135-145); Total Protein 7.3 g/dL (6.5-8.0)
[2025-02-09 16:54] LABS: Troponin-I High Sensitivity 25.7 ng/L (<3.5-17.0)
--- NOTE | 2025-02-09 17:27 | PC.NURSE ---
Pt to ED 17 from triage, reports intermittent chest pressure after having argument with land lord. Placed on bed side monitor, A/O x 3- reports some lightheadedness and dizziness. States hx of HTN but has been out of anti-htn medications for 3 weeks.
--- OUTSIDE RECORDS SUMMARY | 2025-02-09 17:42 | XMS_ITS | Clinical Summary ---
Author Organization [facility] Address [address] [place] [id number] Phone Care Team Providers Care Copy Messenger Name Role Phone Daniela Cuenca DO Primary Care Provide r Allergies Active Allergy Reactions Criticality Noted Date Comments Paclitaxel 04/09/2024 Medications No known medications Immunizations Immunization Administration Dates Next Due Tdap 04/09/2024 Social History Tobacco Use Types Packs/Day Years Used Date Smoking Tobacco: Never Assessed Education Answer Date Recorded Are you interested in more education? Not on rina e 04/09/2024 Are you concerned about learning? Not on file 04/09/2024 No 04/09/2024 No 04/09/2024 Digital Access Answer Date Recorded No 04/09/2024 No 04/09/2024 Reliable internet access at home? Not on file 04/09/2024 Device with a working camera? Not on file Intimate Partner Violence Answer Date R ecorded Are you denied basic needs s uch as food, clothing, or medical care? No 04/09/2024 In the past 12 months have y ou been in a relationship with a person who hurts, threatens, or tries to control you? No 04/09/2024 Are you denied basic needs s uch as food, clothing, or medical care? No 04/09/2024 In the past 12 months have y ou been in a relationship with a person who hurts, threatens, or tries to control you? No 04/09/2024 Comments Unknown Sex and Gender Information Value Date Recorded Sex Assigned at Not on file Legal Sex Female 3:10 PM EDT Gender Identity Not on file Sexual Orientation Not on file Last Filed Vital Signs Vital Sign Reading Time Taken Comments Blood Pressure 170/78 04/09/2024 5:09 PM EDT Pulse 78 04/09/2024 5:09 PM EDT Temperature 36.8 C (98.2 F) 04/09/2024 5:09 PM EDT Respiratory Rate 20 04/09/2024 5:09 PM EDT Oxygen Saturation 97% 04/09/2024 5:09 PM EDT Inhaled Oxygen Concentration - - Weight 127 kg (280 lb) 04/09/2024 3:22 PM EDT Height 180.3 cm (5' 11 ) 04/09/2024 3:22 PM EDT Body Mass Index 39.05 04/09/2024 3:22 PM EDT Plan of Treatment Health Maintenance Due Date Last Done Comments LIPID PANEL 1964 DEPRESSION SCREENING 1976 SMOKING Hx and SMOKELESS TOB ACCO SCREENING 01/12/1977 HEPATITIS C SCREENING 01/12/1982 HIV ONE-TIME SCREENING (18-6 5 YEARS) 01/12/1982 PAP SMEAR 01/12/1985 SCREENING FOR DIABETES 01/12/1999 MAMMOGRAM 2004 COLOGUARD 01/12/2009 COLONOSCOPY 01/12/2009 COLORECTAL CANCER SCREENING 01/12/2009 FIT TEST 01/12/2009 FOBT 01/12/2009 SIGMOIDOSCOPY 01/12/2009 VIRTUAL COLONOSCOPY 01/12/2009 PNEUMOCOCCAL VACCINES (50+ y ears) (1 of 1 - PCV) 01/12/2014 ZOSTER VACCINES (1 of 2) 01/12/2014 COVID-19 VACCINE (1 - 2023-2 5 season) 2024 Adult Td,Tdap Booster 04/09/2034 04/09/2024 RSV VACCINE (1 - 1-dose 75+ series) 01/12/2039 HEPATITIS A VACCINES Aged Out No long er eligible based on patient's age to complete this topic HIB VACCINES Aged Out No longer eligi ble based on patient's age to complete this topic MENINGOCOCCAL VACCINES (ACWY) Aged Out No longer eligible based on patient's age to complete this topic MENINGOCOCCAL VACCINES (B) Aged Out N o longer eligible based on patient's age to complete this topic Medical Devices Not on file Insurance [employer] PPO [employer] PPO [email or web address] PPO [employer] PPO [employer] PPO Care Teams Copy Messenger Relationship Specialty Start Date End Date Daniela Cuenca DO [address] [facility] [address] [place] [address] PCP - General Internal Medicine 04/09/24 Additional Source Comments The information contained in this document represents components of the legal health record. It is not the complete legal health record.[facility]
--- OUTSIDE RECORDS SUMMARY | 2025-02-09 17:42 | XMS_ITS | Patient Health Record ---
Author Organization [facility] Address [address] [place] [address] Care Team Providers Care Television Cameraman Name Role Phone CASEY BIRD DO Primary Care Provider Bárbarajenaro Soni Jauregui Unavailable [phone] Allergies Allergen (clinical drug ingredient) Drug/Non Drug Allergy documented on EMR Reaction Allergy Type Onset Date Status Taxol anaphylaxis Drug Allergy Activ e Results Component Value Reference Range Notes PDF Report Reviewed date:01/12/2025 05:58:25 AM Interpretation: Performing Lab:[facility] [address], [address], [place], Phone - [phone], Director - [facility] Notes/Report: Clinical Information:VAG/CERV [id number] LMP / Prev Treat...[id number]=[id number] Other..............Post Menopausal No. of containers..01 ThinPrep Vial [id number] IGP No Culture 30 Plus Reviewed date:01/12/2025 05:58:54 AM Interpretation: Performing Lab:[facility] [address], [address], [place], Phone - [phone], Director - [facility] Notes/Report: Clinical Information:VAG/CERV [id number] LMP / Prev Treat...[id number] Other..............Post Menopausal No. of containers..01 ThinPrep Vial DIAGNOSIS: NEGATIVE FOR INTRAEPITHELIAL LESION OR MALIGNANCY. Specimen adequacy: Satisfactory for evaluation. Endocervical and/or squamous metaplastic cells (endocervical component) are present. Clinician provided ICD10: Z01.419 Z11.51 Performed by: Cassi ortiz, Assistant Restaurant General Manager (ASCP) . . Note: The Pap smear is a screening test designed to aid in the detection of premalignant and malignant conditions of the uterine cervix. It is not a diagnostic procedure and should not be used as the sole means of detecting cervical cancer. Both false-positive and false-negative reports do occur. . Test Methodology: This liquid based ThinPrep(R) pap test was screened with the use of an image guided system. HPV Aptima Negative Negative This nucleic acid amplification test detects fourteen high-risk HPV types (16,18,31,33,35,39,45,51,5 2,56,58,59,66,68) without differentiation. HPV Genotype Reflex Criteria not met, HPV Genotype not performed. Urine Culture, Routine-[id number] Reviewed date:01/12/2025 04:26:11 PM Interpretation: Performing Lab:[facility] [place], [address] [facility], Phone - [phone], Director - Lisandro Notes/Report: Urine Culture, Routine Final report Result 1 Escherichia coli Cefazolin with an HAYLEY <=16 predicts susceptibility to the oral agents cefaclor, cefdinir, cefpodoxime, cefprozil, cefuroxime, cephalexin, and loracarbef when used for therapy of uncomplicated urinary tract infections due to E. coli, Klebsiella pneumoniae, and Proteus mirabilis. Greater than 100,000 colony forming units per mL Antimicrobial Susceptibility S = Susceptible; I = Intermediate; R = Resistant P = Positive; N = Negative MICS are expressed in micrograms per mL Antibiotic RSLT#1 RSLT#2 RSLT#3 RSLT#4 Amoxicillin/Clavulanic Acid S Ampicillin S Cefazolin S Cefepime S Cefoxitin S Cefpodoxime S Ceftriaxone S Ciprofloxacin S Ertapenem S Gentamicin S Levofloxacin S Meropenem S Nitrofurantoin S Piperacillin/Tazobactam S Tetracycline S Tobramycin S Trimethoprim/Sulfa S Urinalysis, Complete-[id number] Reviewed date:01/12/2025 04:26:34 PM Interpretation: Performing Lab:[facility] [place], [address] [facility], [place], Phone - [phone], Director - Lisandro Notes/Report: Specific [place] 1.020 1.005-1.030 pH 6.0 5.0-7.5 Urine-Color Yellow Yellow Appearance Cloudy Clear WBC Esterase 3+ Negative Protein Trace Negative/Trace Glucose Negative Negative Ketones Negative Negative Occult Blood Negative Negative Bilirubin Negative Negative Urobilinogen,Semi-Qn 0.2 0.2-1.0 mg/dL Nitrite, Urine Positive Negative Microscopic Examination See below: Micr oscopic was indicated and was performed. WBC 0-5 0 - 5 /hpf RBC 0-2 0 - 2 /hpf Epithelial Cells (non renal) >10 0 - 10 /hpf Casts None seen None seen /lpf Bacteria Many None seen/Few Urinalysis Reviewed date:01/10/2025 04:51:36 PM Interpretation: Performing Lab: Notes/Report: NITRITE POS PH 5.0 PROTEIN Small S.G 1.005 WBC LG GLUCOSE Neg KETONES Neg UROBILINOGEN Neg BILIRUBIN Neg BLOOD Small PDF Report Reviewed date:01/12/2025 04:20:46 PM Interpretation: Performing Lab:[facility], [address] [place] [address], [place], Phone - [phone], Director - Lisandro Notes/Report: Reason For Referral No Information Medications Medication SIG (Take, Route, Frequency, Duration) Notes Start Date End Date Status Lisinopril-hydroCHLOROthia zide 10-12.5 MG 1 tablet Orally Once a day Active Macrobid 100 MG 1 capsule with food Orally every 12 hrs; Duration: 7 days 01/12/2025 Active Magnesium Active Social History Tobacco Use: Social History Observation Description Date Details (start date - stop date) Former Smoker NA - NA Sexual History Question Answer Notes Had sex in the past 12 months (vaginal, oral, or anal)? No Have you ever had a Sexually transmitted disease ? No Tobacco Control (Standard) Question Answer Notes Tobacco use: Former smoker Problems Problem Type SNOMED Code ICD Code Onset Dates Problem Status W/U Status Risk Notes Problem Urinary incontinence (915627747) Unspecified urinary incontinence (R32) Active confirmed Problem Essential hypertension (96245088) Essential (primary) hypertension (I10) Active confirmed Problem Malignant neoplasm of female breast (333599698) Malignant neoplasm of unspecified site of unspecified female breast (C50.919) Active confirmed Problem Functional urinary incontinence (742704468) Functional urinary incontinence (R39.81) Active confirmed Problem Personal history of primary malignant neoplasm of breast (677256532) Personal history of malignant neoplasm of breast (Z85.3) Active confirmed Vital Signs Temperature 97.8 degrees Fahrenheit 01/10/2025 Blood pressure diastolic 88 mm Hg 01/10/2025 Height 71 in 01/10/2025 Blood pressure systolic 157 mm Hg 01/10/2025 Weight 280 lbs 01/10/2025 BMI 39.05 kg/m2 01/10/2025 Encounters Encounter Location Date Provider Diagnosis Total [employer] [facility] [place] [address] [address] [facility] [address] [place] [address] 01/10/2025 Soni Dewitt Encounter for screening for human papillomavirus (HPV) Z11.51 ; Encounter for screening mammogram for malignant neoplasm of breast Z12.31 ; Personal history of malignant neoplasm of breast Z85.3 ; Unspecified urinary incontinence R32 and Encounter for gynecological examination (general) (routine) without abnormal findings Z01.419 Total [employer] [facility] [place] [address] [address] [facility] [address] [place] [address] 01/12/2025 Soni Dewitt Urinary tract infection, site not specified N39.0 Assessments Encounter Date Diagnosis (ICD Code) Assessment Notes Treatment Notes Treatment Clinical Notes Section Notes 01/10/2025 Encounter for screening for human papillomavirus (HPV) (ICD-10 - Z11.51) HPV TYPING WAS ORDERED WITH PAP SMEAR. 01/12/2025 Urinary tract infection, site not specified (ICD-10 - N39.0) 01/10/2025 Encounter for screening mammogram for malignant neoplasm of breast (ICD-10 - Z12.31) REGULAR MAMMOGRAMS AND SBE'S WERE RECOMMENDED. 01/10/2025 Personal history of malignant neoplasm of breast (ICD-10 - Z85.3) CONITNUE FOLLOW UP WITH ONCOLOGIST. 01/10/2025 Unspecified urinary incontinence (ICD-10 - R32) DISCUSSED DIFFERENT TYPES OF INCONTINENCE. OFFICIAL UA AND URINE C/S REFER TO DR KAUFMAN FOR EVALUATION AND MX. 01/10/2025 Encounter for gynecological examination (general) (routine) without abnormal findings (ICD-10 - Z01.419) PAP TEST WAS OBTAINED. Plan Of Treatment Pending Test Test Name Order Date MAMMOGRAM, SCREENING 01/10/2025 MM Digital Mammo Screening 01/10/2025 Urinalysis, Complete-[id number] 01/12/2025 Urine Culture, Routine-[id number] 01/12/2025 Next Appt Details Provider Name:Soni marcos, 01/11/2026 02:00:00 PM, [address], [address], [place], [address], Insurance Providers Payer Name Payer Address Payer Phone Subscriber Number Group Number Insured Name Patient Relationship to Insured Coverage Start Date Coverage End Date [facility] [address] [place] [address] [id number] [id number] FAJARDO Self - patient is the insured Medical (General) History Medical History History ICD Code Malignant neoplasm of unspecified site o f unspecified female breast C50.919 Disorder of thyroid, unspecified E07.9 Essential (primary) hypertension I10 Surgical History Surgery Date(Month/Year) c section 1989 gallbladder removal 1990 lumpectomy breast 2014 2019 knee meniscuc 2019 Hospitalization History Reason Date(Month/Year) lung biopsy neg 2014
--- OUTSIDE RECORDS SUMMARY | 2025-02-09 17:42 | XMS_ITS | Clinical Summary ---
Author Organization [facility] Address [address] [place] [address] Care Team Providers Care Care Consultant Name Role Phone Unavailable Primary Care Provider Unavailabl e Surgical History Surgery Date Site/Laterality Comments CHOLECYSTECTOMY 1989 PROCEDURE: HISTORICAL CHOLECYSTECTOMY SECTION 1989 PROCEDURE: [place] DELIVERY ONLY Medical History Medical History Date Comments Asthma DX:Asthma; COMME NT: exercise induced Unspecified asthma(493.90) 12/05/2007 DX:Un specified asthma(493.90); COMMENT: EXERCISE INDUCED Obesity, unspecified 12/05/2007 DX:Obesity, unspecified Essential hypertension, benign 12/05/2007 D X:Essential hypertension, benign Family History Relation Name Status Comments Brother 1 (Age 31) [place] Brother 2 Alive MANIC DEPRESSIV E Brother 3 Alive Brother 4 Alive Daughter Alive [id number] RING LOSS INFANT Father Alive [place] Maternal Grandfather (Age 69) [place] Maternal Grandmother (Age 62) [place] Mother Alive CHF, DM, CHOL, HTN, BIPOLAR Paternal Grandfather (Age 81) EM PHYSEMA, PANCREATIC CA Paternal Grandmother (Age 60'S) [place] Sister Alive Son 1 Alive 1983-HERNAN- AD [...] ars (1 of 2 - PCV) 01/12/1983 Cervical Cancer Screening: P ap Smear 01/12/1985 Hepatitis B Vaccines (2 of 3 - 19+ 3-dose series) 01/02/2008 12/05/2007 Zoster Vaccines (1 of 2) 01/12/2014 Cholesterol Screening (Lipid Panel) 07/20/2023 Colorectal Cancer Screening: Colonoscopy 07/20/2023 HIV Screening 07/20/2023 Hepatitis C Screening 07/20/2023 Hypertension/CHF/CAD Annual BMP Blood Test 07/20/2023 Social Influencers of Health Screening 07/20/2023 RSV Immunization Adult Patie nts (1 - Risk 60-74 years 1-dose series) 2024 COVID-19 Vaccine ( - 2023-2 5 season) 2024 Depression Screening 06/21/2024 Influenza Vaccine (#1) 2025 HIB Vaccines Aged Out No longer eligi [...] age to complete this topic Meningococcal B Vaccine Aged Out No l onger eligible based on patient's age to complete this topic RSV Immunization Patients Un tonja 20 months Aged Out No longer eligible b ased on patient's age to complete this topic Varicella Vaccines Aged Out No longer eligible based on patient's age to complete this topic
[2025-02-09 19:33] LABS: D Dimer High Sensitivity < 150 NG/ML
[2025-02-09 20:31] LABS: Troponin-I High Sensitivity 28.1 ng/L (<3.5-17.0)
[2025-02-09 22:33] LABS: Troponin-I High Sensitivity 28.2 ng/L (<3.5-17.0)
--- NOTE | 2025-02-09 22:44 | PC.NURSE ---
Provider made aware of bp in the 170s and second elevated trop.
== END 2025-02-09 23:55 | disposition home or self-care (01) ==
PROVIDERS: Physician Assistant; Emergency Provider Emergency Medicine; PCP Internal Medicine
DX: R07.89 Other chest pain (principal); I10 Essential (primary) hypertension; Z79.899 Other long term (current) drug therapy
CPT/HCPCS: 36415; 71046; 80053; 83690; 84484; 85025; 85379; 99283; 99285

== ENCOUNTER → 2025-02-09 18:38 | Outpatient (BNV) | payer OTHER, SELFPAY | PROVIDERS: Emergency Provider Emergency Medicine; PCP Internal Medicine; Visit Provider Radiology Neuroradiology | DX: R07.9 Chest pain, unspecified (principal) | CPT/HCPCS: 71046 ==

== ENCOUNTER 2025-02-11 01:44 | Emergency (ER) | payer OTHER, SELFPAY ==
--- NOTE | 2025-02-11 | ECG_ITS ---
Test Reason : HYPERTENSION Blood Pressure : */* mmHG Vent. Rate : 110 BPM Atrial Rate : 110 BPM P-R Int : 166 ms QRS Dur : 90 ms QT Int : 356 ms P-R-T Axes : 58 12 70 degrees QTcB Int : 481 ms Sinus tachycardia Otherwise normal ECG When compared with ECG of 17-Jul-2024 22:58, No significant change was found Referred By: Generic ED Physician Electronically Signed By: LINDA ROMEO
[2025-02-11 01:50] VITALS: BP 238/122; PULSE 115; PULSE 130; RESP 20; TEMP 37.9; O2SAT 97; BMI 39.0
--- OUTSIDE RECORDS SUMMARY | 2025-02-11 01:51 | XMS_ITS | Clinical Summary ---
Author Organization [facility] Address [address] [place] [address] Care Team Providers Care Supervisor [employer] Name Role Phone Unavailable Primary Care Provider Unavailabl e Surgical History Surgery Date Site/Laterality Comments CHOLECYSTECTOMY 1989 PROCEDURE: HISTORICAL CHOLECYSTECTOMY SECTION 1989 PROCEDURE: [place] DELIVERY ONLY Medical History Medical History Date Comments Asthma DX:Asthma; COMME NT: exercise induced Unspecified asthma(493.90) 12/05/2007 DX:Un specified asthma(493.90); COMMENT: EXERCISE INDUCED Obesity, unspecified 12/05/2007 DX:Obesity, unspecified Essential hypertension, benign 12/05/2007 D X:Essential hypertension, benign Family History Relation Name Status Comments Brother 1 (Age 31) MS Brother 2 Alive MANIC DEPRESSIV E Brother 3 Alive Brother 4 Alive Daughter Alive [id number] RING LOSS INFANT Father Alive [place] Maternal Grandfather (Age 69) [place] Maternal Grandmother (Age 62) [place] Mother Alive CHF, DM, CHOL, HTN, BIPOLAR Paternal Grandfather (Age 81) EM PHYSEMA, PANCREATIC [place] Paternal Grandmother (Age 60'S) [place] Sister Alive Son 1 Alive 1983-HERNAN- AD [...]
--- OUTSIDE RECORDS SUMMARY | 2025-02-11 01:51 | XMS_ITS | Patient Health Record ---
Author Organization [employer] [facility] Address [address] [place] [address] Care Team Providers Care Relief Captain Name Role Phone CASEY BIRD DO Primary Care Provider Unajenaro samra DewittRebecali Unavailable [phone] Allergies Allergen (clinical drug ingredient) Drug/Non Drug Allergy documented on EMR Reaction Allergy Type Onset Date Status Taxol anaphylaxis Drug Allergy Activ e Results Component Value Reference Range Notes Urine Culture, Routine-[id number] Reviewed date:01/12/2025 04:26:11 PM Interpretation: Performing Lab:[facility], [address] [place] [address], Phone - [phone], Director - Lisandro Notes/Report: Urine Culture, Routine [...] S Tetracycline S Tobramycin S Trimethoprim/Sulfa S [id number] IGP No Culture 30 Plus Reviewed date:01/12/2025 05:58:54 AM Interpretation: Performing Lab:[facility] [address], [address], [place], Phone - [phone], Director - [facility] Notes/Report: Clinical Information:VAG/CERV [id number] LMP / Prev Treat...[id number]=[id number] Other..............Post Menopausal No. of containers..01 ThinPrep Vial DIAGNOSIS: NEGATIVE FOR INTRAEPITHELIAL LESION OR MALIGNANCY. Specimen adequacy: Satisfactory for evaluation. Endocervical and/or squamous metaplastic cells (endocervical component) are present. Clinician provided ICD10: Z01.419 Z11.51 Performed by: Cassi ortiz, Movie Operator (ASCP) . . Note: The Pap smear [...] Criteria not met, HPV Genotype not performed. Urinalysis, Complete-[id number] Reviewed date:01/12/2025 04:26:34 PM Interpretation: Performing Lab:[facility], [address], [place], Phone - [phone], Director - Lisandro Notes/Report: Specific [place] 1.020 1.005-1.030 pH 6.0 5.0-7.5 Urine-Color Yellow [...] Report Reviewed date:01/12/2025 04:20:46 PM Interpretation: Performing Lab:[facility], [address], [place], Phone - [phone], Director - Lisandro Notes/Report: PDF Report Reviewed date:01/12/2025 05:58:25 AM Interpretation: Performing Lab:[facility] [place], [address], [address], [place], Phone - [phone], Director - Heather Notes/Report: Clinical Information:VAG/CERV [id number] LMP / Prev Treat...[id number] Other..............Post Menopausal No. of containers..01 ThinPrep Vial Reason For Referral No Information Medications Medication [...] W/U Status Risk Notes Problem Urinary incontinence (184766375) Unspecified urinary incontinence (R32) Active confirmed Problem Essential hypertension (72381305) Essential (primary) hypertension (I10) Active confirmed Problem Malignant neoplasm of female breast (218504814) Malignant neoplasm of unspecified site of unspecified female breast (C50.919) Active confirmed Problem Functional urinary incontinence (862276085) Functional urinary incontinence (R39.81) Active confirmed Problem Personal history of primary malignant neoplasm of breast (628594876) Personal history of malignant neoplasm of breast (Z85.3) Active confirmed Vital Signs Temperature 97.8 degrees Fahrenheit 01/10/2025 Blood pressure diastolic 88 mm Hg 01/10/2025 Height 71 in 01/10/2025 Blood pressure systolic 157 mm Hg 01/10/2025 Weight 280 lbs 01/10/2025 BMI 39.05 kg/m2 01/10/2025 Encounters Encounter Location Date Provider Diagnosis Total [facility] [employer] [place] [address] [facility] [address] [place] [address] 01/10/2025 Soni Dewitt Encounter for screening for human papillomavirus (HPV) Z11.51 ; Encounter for screening mammogram for malignant neoplasm of breast Z12.31 ; Personal history of malignant neoplasm of breast Z85.3 ; Unspecified urinary incontinence R32 and Encounter for gynecological examination (general) (routine) without abnormal findings Z01.419 Total [facility] [place] [address] [facility] [address] [place] [address] 01/12/2025 Soni Dewitt Urinary tract infection, site [...] 01/10/2025 MM Digital Mammo Screening 01/10/2025 Urinalysis, Complete-[id number] 01/12/2025 Urine Culture, Routine-[id number] 01/12/2025 Next Appt Details Provider Name:Soni marcos, 01/11/2026 02:00:00 PM, [address] [facility], [address], [place], [address], Insurance Providers Payer Name Payer Address Payer Phone Subscriber Number Group Number Insured Name Patient Relationship to Insured Coverage Start Date Coverage End Date [facility] [address] [place] [address] [phone] [id number] YUE FAJARDO Self - patient is the [...]
--- OUTSIDE RECORDS SUMMARY | 2025-02-11 01:51 | XMS_ITS | Clinical Summary ---
Author Organization [facility] Address [address] [place] [address] Phone Care Team Providers Care Dairy Farmworker Name Role Phone Daniela Cuenca DO Primary [...] Insurance [employer] PPO [employer] PPO [employer] PASSP[employer] PPO [address] [employer] PAS[employer]ORT PPO [employer] PPO Care Teams Dairy Farmworker Relationship Specialty Start Date End Date Daniela Cuenca DO [address] [facility] [address] [place] [address] PCP - General Internal Medicine 04/09/24 Additional Source Comments The information contained in this document represents components of the legal health record. It is not the complete legal health record.[facility]
[2025-02-11 01:56] VITALS: BP 175/84; PULSE 112; RESP 16; TEMP 37.9; O2SAT 97
[2025-02-11 02:16] LABS: MANUAL DIFF FLAG NO
[2025-02-11 02:17] LABS: Hematocrit 39.5 % (37.0-47.0); Hemoglobin 14.1 g/dl (12.0-16.0); Imm Gran Abs Auto 0.02 X10*3/uL (0.00-0.03); Imm Gran Pct Auto 0.2 % (0.0-0.4); Lymphocytes Absolute Auto 1.2 X10*3/uL (1.2-4.9); Mean Corpuscular HGB Conc 35.7 g/dl (31.0-35.0); Mean Corpuscular Hemoglobin 31.1 pg (27.0-33.0); Mean Corpuscular Volume 87.2 fL (80.0-98.0); NRBC Abs Auto 0.000 X10*3/uL (0.0-0.012); NRBC Pct Auto 0.0 /100WBC (0.0-0.2); Platelet Count 227 X10*3/uL (160-400); Red Blood Count 4.53 X10*6/uL (4.20-5.50); White Blood Count 8.2 X10*3/uL (4.8-10.8)
[2025-02-11 02:23] LABS: INTERNATIONAL NORM RATIO 1.0 (0.9-1.1); Prothrombin Time 10.9 SEC (10.9-12.4)
[2025-02-11 02:33] LABS: Alanine Aminotransferase 38 U/L (0-31); Albumin Level 4.1 g/dL (3.5-5.0); Alkaline Phosphatase 107 U/L (39-117); Anion Gap 15 (12-20); Aspartate Amino Transferase 51 U/L (5-31); Blood Urea Nitrogen 10 mg/dL (9-16); Calcium 9.0 mg/dL (8.4-10.2); Carbon Dioxide 23 mmol/L (22-29); Chloride 104 mmol/L (96-108); Creatinine Clr Calc Pharmacy 135.9; Estimated Glomerular Filt Rate > 60; Magnesium 1.8 mg/dL (1.6-2.6); Potassium 3.6 mmol/L (3.3-5.1); Sodium 138 mmol/L (135-145); Total Protein 7.1 g/dL (6.5-8.0)
[2025-02-11 02:42] LABS: Troponin-I High Sensitivity 19.7 ng/L (<3.5-17.0)
[2025-02-11 02:44] LABS: Appearance Urine Clear; Glucose Urine UA Negative (Negative); PH 5.5 (5.0-9.0); Specific Gravity - Urine 1.015 (1.005-1.025); UMIC TRIGGER UA YES
[2025-02-11 03:11] LABS: Resp Syncy Virus RNA Qual PCR NEGATIVE (Negative); SARS COV2 PCR INHOUSE NEGATIVE (Negative)
[2025-02-11 04:43] VITALS: BP 160/87; PULSE 98; RESP 14; TEMP 37.2; O2SAT 97
--- NOTE | 2025-02-11 04:43 | ED_ITS ---
HPI - Arrhythmia/Palpitations General Chief Complaint: Arrhythmia/Palpitations Stated Complaint: Tachy, Hypertensive Time Seen by Provider: 02/11/25 04:27 Source: patient and EMS Mode of arrival: EMS Limitations: no limitations History of Present Illness ED Provider: Dr. Evelyne Blackwood HPI narrative: Patient comes to the emergency room complaining of palpitations. Patient states that today she was sleeping, got up to the bathroom, checked her heart rate and it was 135, patient became scared, anxious, called the ambulance. Patient also states that yesterday she was diagnosed with a UTI, patient states that she was given a prescription for Macrobid. Patient says that in the past when she gets Macrobid, she usually needs to be switched to a different antibiotic because it does not work well. Patient denies flank pain. Patient states that she is still having dysuria. Related Data Previous Rx's ?Medication ?Instructions ?Recorded nirmatrelvir 300 mg (150 mg See Rx Instructions PO .CO MPLEX 07/18/24 x2)-ritonavir 100 mg tablet,dose #30 ea pack (Paxlovid) hydrochlorothiazide 12.5 mg capsule 12.5 mg PO DAILY # 90 caps 02/09/25 lisinopril 10 mg tablet 10 mg PO DAILY #90 tabs 01/20 08/15 cefuroxime axetil 250 mg tablet 250 mg PO BID #14 tabs 02/11/25 Allergies Allergy/AdvReac Type Severity Reaction Status Date / Time paclitaxel (From Taxol) Allergy Anaphylaxis Verified 02/11/25 01:52 Review of Systems 2 Review of Systems: Constitutional : No Weight loss, No Fever, No Chills, No Night Sweats, No Fatigue, No Malaise ENT/Mouth : No Hearing loss, No Ear Pain, No Nasal Congestion, No Sinus Pain, No Hoarseness, No sore throat, No Rhinorrhea, No Swallowing Difficulty Eyes: No Eye Pain, No Swelling, No Redness, No Foreign Body, No Discharge, No Vision Changes Cardiovascular : No Chest Pain, No SOB, No Dyspnea on Exertion, No Orthopnea, No Edema, complaining of Palpitations Respiratory : No Cough, No Sputum, No Wheezing, No Smoke Exposure, No Dyspnea Gastrointestinal : No Nausea, No Vomiting, No Diarrhea, No Constipation, No abdominal Pain, No Hematochezia, No Melena Genitourinary : no irregular bleeding, complaining of Dysuria, No Urinary Frequency, No Hematuria, No Urinary Incontinence, No Urgency, No Flank Pain, No Urinary Flow Changes, No Hesitancy Musculoskeletal : No joint pain, No Myalgias, No Joint Swelling Skin : No Skin Lesions, No rash Neuro : No Weakness, No Numbness, No Paresthesias, No Loss of Consciousness, No Dizziness, No Headache Psych : No Anxiety/Panic, No Depression, No SI/HI/AH/VH, No Social Issues, Heme/Lymph: No Bruising, No Bleeding,No Lymphadenopathy Endocrine : No Polyuria, No Polydipsia, No Temperature Intolerance [facility] Past Medical History Medical History (Updated 02/11/25 @ 04:51 by Evelyne Blackwood MD) Hypertension Social History Social History Smoked in Last 30 Days: No Use of substances other than those prescribed or required for medical reasons: No Advance Directives: No Advance Directives Information Provided: No Patient : No Physical Exam 2 Exam: Exam: Appearance: Alert. Oriented X3. No acute distress. Eyes: Pupils equal, round and reactive to light. ENT: Pharynx normal. Neck: Normal inspection. Neck supple. No lymph nodes noted. No crepitus CVS: Normal heart rate and rhythm. Pulses normal. Normal S1 and S2 Respiratory: No respiratory distress. Breath sounds normal. No Wheezing. No rales Abdomen: Soft and nontender. No rigidity. No distention. Skin: Skin warm and dry. Normal skin color. Normal skin turgor. Extremities: No lower extremity edema. No Lacerations. No Rash Neuro: Oriented X 3. No motor deficit. No sensory deficit. Moving all extremities. No slurred speech. CN 2 through 12 grossly intact Psych: calm, cooperative, normal affect Vital Signs: Vital Signs: Last Vital Signs Temp 99.0 F 02/11/25 04:43 Pulse 98 02/11/25 04:43 Resp 14 02/11/25 04:43 BP 160/87 H 02/11/25 04:43 Pulse Ox 97 02/11/25 04:43 O2 Del Method Room Air 02/11/25 04:43 BMI result Body Mass Index 39.0 Medical Decision Making Medical Decision Making [facility] Narrative: My interpretation of EKG: Sinus tachycardia, heart rate 110, no ST segment depression or elevation, no T-wave inversion, QTC 481 On physical exam, patient is no longer tachycardic, patient feels legs anxious. I discussed with the patient that if she gets up and walk, it is a normal response for the hard to increase and then at rest to decreased. Per patient's request, patient will like it different antibiotics since Macrobid has not work well for her in the past for UTI is. Patient was given the 1st dose of cefuroxime in the emergency room. Otherwise, patient feels well, no symptoms. Patient's blood pressure 160/87, patient took the 1st dose of her antihypertensive medications a few hours ago, patient needs to have close follow-up with PCP. Patient has been on the monitor for a couple of hours, no arrhythmias detected Differential Diagnosis Differential Diagnoses: The differential diagnosis associated with the presentation includes (Anxiety, palpitations, SVT, atrial flutter) Admission/Observation Consideration of admission/observation: Escalation of care including admission/observation considered (Given patient's recurrent symptoms, observation was considered) Lab Data MDM Lab Attestation statement: I reviewed the patient's lab results. 02/11/25 02:09 02/11/25 02:09 Labs: Lab Results 02/11/25 02/11/25 Range/Units 02:09 02:37 WBC 8.2 (4.8-10.8) X10*3/uL RBC 4.53 (4.20-5.50) X10*6/uL Hgb 14.1 (12.0-16.0) g/dl Hct 39.5 (37.0-47.0) % MCV 87.2 (80.0-98.0) fL MCH 31.1 (27.0-33.0) pg MCHC 35.7 H (31.0-35.0) g/dl RDW 13.4 (11.0-16.0) % Plt Count 227 (160-400) X10*3/uL MPV 9.8 (9.4-12.3) fL Immature Gran % (Auto) 0.2 (0.0-0.4) % Neut % (Auto) 72.8 (45-73) % Lymph % (Auto) 14.4 L (20-40) % [place]eton % (Auto) 8.2 (2-11) % Eos % (Auto) 3.8 (0-4) % Baso % (Auto) 0.6 (0-2) % Lymph # (Auto) 1.2 (1.2-4.9) X10*3/uL [place] # (Auto) 0.7 (0.1-1.2) X10*3/uL Eos # (Auto) 0.3 (0.0-0.4) X10*3/uL Baso # (Auto) 0.1 (0.0-0.2) X10*3/uL Abs Immat Gran (auto) 0.02 (0.00-0.03) X10*3/uL Absolute Neuts (auto) 6.0 (2.0-8.3) x10*3/uL Absolute Nucleated RBC 0.000 (0.0-0.012) X10*3/uL Nucleated RBC % (auto) 0.0 (0.0-0.2) /100WBC PT 10.9 (10.9-12.4) SEC INR 1.0 (0.9-1.1) Sodium 138 (135-145) mmol/L Potassium 3.6 (3.3-5.1) mmol/L Chloride 104 (96-108) mmol/L Carbon Dioxide 23 (22-29) mmol/L Anion Gap 15 (12-20) BUN 10 (9-16) mg/dL Creatinine 0.64 (0.5-1.4) mg/dL Estim Creat Clear Calc 135.9 Estimated GFR > 60 Random Glucose 141 H (60-115) mg/dL Calcium 9.0 (8.4-10.2) mg/dL Magnesium 1.8 (1.6-2.6) mg/dL Total Bilirubin 0.8 (0.0-1.0) mg/dL AST 51 H (5-31) U/L ALT 38 H (0-31) U/L Alkaline Phosphatase 107 (39-117) U/L Troponin I High Sens 19.7 H (<3.5-17.0) ng/L Total Protein 7.1 (6.5-8.0) g/dL Albumin 4.1 (3.5-5.0) g/dL Urine Color Yellow Urine Appearance Clear Urine pH 5.5 (5.0-9.0) Ur Specific [place] 1.015 (1.005-1.025) Urine Protein Negative (Neg-Trace) mg/dL Urine Glucose (UA) Negative (Negative) mg/dL Urine Ketones Negative (Negative) mg/dL Urine Blood Negative (Negative) Urine Nitrite Negative (Negative) Ur Leukocyte Esterase Small (1+) H (Negative) Urine RBC 0-2 (0-2) /HPF Urine WBC 6-10 H (0-5) /HPF Ur Squamous Epith Cells 0-2 (0-2) /HPF Urine Bacteria None Seen (None Seen) Hyaline Casts 0-2 (0-2) /LPF Influenza Type A (PCR) NEGATIVE (Negative) Influenza Type B (PCR) NEGATIVE (Negative) RSV RNA Qual (PCR) NEGATIVE (Negative) SARS-CoV-2 RNA (RT-PCR) NEGATIVE (Negative) Independent Interpretation I performed an independent interpretation of an: EKG Critical Care Time Critical Care Time Critical Care Time: Yes Total Critical Care Time: 35 Attestation: I have personally provided critical care time. Time includes review of lab data, radiology results, discussion with consultants, and monitoring for potential decompensation. Intervention performed as documented. Discharge Plan Discharge Clinical Impression: Palpitations, UTI (urinary tract infection) Patient Disposition: Home, Self-Care Instructions: Heart Palpitations (ED), Urinary Tract Infection in Women (ED) Additional Instructions: Continue taking your blood pressure medications as prescribed. Discontinue taking Macrobid, started a new antibiotic. Please follow-up with your primary care physician tomorrow. If you have any worsening or new symptoms, please return to the emergency room or call 911 Prescriptions: New cefuroxime axetil 250 mg tablet 250 mg PO BID Qty: 14 0RF No Action lisinopril 10 mg tablet 10 mg PO DAILY Qty: 90 0RF hydrochlorothiazide 12.5 mg capsule 12.5 mg PO DAILY Qty: 90 0RF Paxlovid 300 mg (150 mg x 2)-100 mg tablets,dose pack See Rx Instructions .ROUTE .COMPLEX Qty: 30 0RF Rx Instructions: take TWO 150 mg tablets of nirmatrelvir with ONE 100 mg tablet of ritonavir twice daily for 5 days Print Language: Faroese
[2025-02-11 05:14] VITALS: BP 160/87; PULSE 98; RESP 14; TEMP 37.2; O2SAT 97
== END 2025-02-11 05:14 | disposition home or self-care (01) ==
PROVIDERS: Emergency Provider Emergency Medicine
DX: R00.2 Palpitations (principal); N39.0 Urinary tract infection, site not specified; Z79.899 Other long term (current) drug therapy
CPT/HCPCS: 80053; 81001; 83735; 84484; 85025; 85610; 87637; 93005; 99283; 99284

== ENCOUNTER → 2025-02-11 01:59 | Outpatient (BNV) | payer OTHER, SELFPAY | PROVIDERS: Emergency Provider Emergency Medicine; Visit Provider Internal Medicine | DX: R00.0 Tachycardia, unspecified (principal) | CPT/HCPCS: 93010 ==

== ENCOUNTER 2025-03-01 14:27 | Outpatient (AMB) | payer OTHER, SELFPAY ==
[2025-03-01 14:57] VITALS: BP 140/82; PULSE 92; BMI 39.3
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
--- OUTSIDE RECORDS SUMMARY | 2025-03-01 18:10 | XMS_ITS | Clinical Summary ---
Author Organization [facility] Address [address] [place] [id number] Phone Care Team Providers Care Unix Manager Name Role Phone Daniela Cuenca DO Primary [...] 01/12/2014 ZOSTER VACCINES (1 of 2) 01/12/2014 INFLUENZA VACCINE (#1) 2025 COVID-19 VACCINE ( - 2023-2 5 season) 2025 Adult Td,Tdap Booster 04/09/2034 04/09/2024 RSV VACCINE [...] Insurance [employer] PPO [employer] PPO [employer] PPO [employer] PPO [employer] PPO [employer] PPO Member Subscriber Plan / Payer (Ef fective 2023-Present) Name:Kinjal Fajardo Relation to Subscriber:Spouse Name:ABE FAJARDO Date of :1900 Address: [address] [place] [address] Payer ID:[id number] (NAIC) Type:PPO Address: [facility] [address] [place] [id number] Care Teams Unix Manager Relationship Specialty Start Date End Date Joellen Seankevinnancy RyanDO [address] [facility] [address] [place] [address] PCP - General Internal Medicine 04/09/24 Additional Source Comments The information contained in this document represents components of the legal health record. It is not the complete legal health record.[facility]
== END 2025-03-01 15:42 | disposition home or self-care (01) ==
DX: R00.2 Palpitations (principal); I10 Essential (primary) hypertension; Z09 Encounter for follow-up examination after completed treatment for conditions other than malignant neoplasm
CPT/HCPCS: 93010; 99214

== ENCOUNTER → 2025-03-01 14:27 | Outpatient (BNVA) | payer OTHER, SELFPAY | DX: R00.2 Palpitations (principal) | CPT/HCPCS: 93005 ==

== ENCOUNTER → 2025-04-05 09:40 | Outpatient (REF) | payer OTHER, SELFPAY ==
--- OUTSIDE RECORDS SUMMARY | 2024-07-20 09:40 | XMS_ITS ---
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 :1965 A ge:59 Y S ex:Female Date:07/20/2024 Address:[address] [place], [place] [id number] Pcp:CASEY BIRD DO Subjective: * Chief Complaints: * 1 . 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 * Medical History: Objective: * Vitals: Assessment: Plan: * Treatment: * Images: Billing Information: * Visit Code: * Procedure Codes: * Electronic signature of Olivia Dewitt MD on 04/05/2025 at 11:09 AM EDT Sign off status: Pending * Appointment Provider: Boo Dewitt M.D. Date: 0 07/20/2024 Generated for Solo conner/Dilshad/Yadiel on: 1 11:09 AM EDT
--- NOTE | 2025-04-05 09:44 | HM_ITS ---
* Total monitoring time 3 days. * Underlying rhythm is sinus with an average rate of 82/Min. * Rare supraventricular ectopy. * Rare ventricular ectopy. * No significant pauses or high-grade AV blocks. * No patient markers or diary events. MTDD
--- NOTE | 2025-04-05 09:44 | CA_ITS ---
Transthoracic Echocardiogram Patient (Last, First, Middle): Kinjal Lo, Gender: F Date of : 1965 Age: 60 Procedure Date: 04/05/2025 Procedure Type: Transthoracic Echocardiogram Location: OP Height: 180.34 cm Weight: 127.46 kg BSA: 2.44 m2 Heart Rate: bpm BP: 140 / 82 mmHg Digital Marketing Coordinator: MARÍA Referring MD: Greg Pandya NP Wood Getter: Christian King MD Symptoms: I10 - Essential (primary) hypertension Study Quality: Adequate ECG Rhythm: Sinus Conclusions: - 1. Normal LV ejection fraction with upper limits of normal LV wall thickness with grade 1 diastolic dysfunction 2. Normal cardiac valvular Dopplers 3. Normal RV systolic pressure 4. Upper limits of normal ascending aortic size 5. No gross pericardial effusion Findings Left Ventricle Normal left ventricular size and systolic function. There is mildly increased left ventricular wall thickness. The visually estimated ejection fraction is between 55-60%. Spectral Doppler is indicative of an impaired relaxation filling pattern. E/E prime ratio is <8, consistent with normal filling pressures. Evidence suggests grade I (mild) diastolic dysfunction. Right Ventricle Normal right ventricular cavity size and systolic function. Atria The left atrium is normal in size. There is no evidence of interatrial shunt. The right atrium is normal in size. Aortic Valve Normal aortic valve structure and function. There is no aortic valve stenosis. There is no aortic valve regurgitation. Mitral Valve Normal mitral valve structure and function. There is trace mitral valve regurgitation. There is no mitral valve stenosis. Pulmonic Valve The pulmonic valve is likely normal. Tricuspid Valve Normal tricuspid valve structure. There is trace tricuspid valve regurgitation. The right ventricular systolic pressure is normal. The right ventricular systolic pressure is 24 mmHg. Normal right atrial pressure. There is no evidence of pulmonary hypertension. Great Vessels The pulmonary artery was not well visualized. There is no dilatation of the ascending aorta measuring 3.60 cm. Venous The inferior vena cava is normal in size and collapses greater than 50% with inspiration. Pericardium/Pleural There is no evidence of pericardial effusion. Prior Study Comparison No prior study available for comparison. Measurements 2D Linear Measurements IVSd: 1.15 0.6-0.9/0.6-1.0 cm LVIDd: 5.02 3.9-5.3/4.2-5.9 cm LVIDd Index: 2.06 2.4-3.2/2.2-3.1 cm/m2 LVIDs: 3.01 2.0-3.6 cm LVPWd: 1.19 0.7-1.1 cm LA Diam: 3.40 2.7-3.8/3.0-4.0 cm LAIDs Index: 1.39 1.5-2.3 cm/m2 LV Mass: 283.07 67-162/88-224 g LV Mass Index: 116.01 43-95/49-115 g/m2 LVOT Diam: 2.20 3.0+(-)1.3 cm 2D Systolic Function EF 4C: 52.90 >55% EF 2C: 58.90 >55% EF BiP: 54.80 >55% Mitral Valve MV Pk E: 0.85 MV PK A: 0.97 MV Decel Time: 192.00 E/A: 0.90 E'Lateral: 9.25 E'Medial: 7.29 E/E' Med: 11.60 E/E' Lat: 9.20 PHT: 56.00 MVA PHT: 3.93 Decel Kenedy: 4.41 Aortic Valve AoV Pk Miguelangel: 1.63 AoV Mn Miguelangel: 1.19 AoV VTI: 0.35 AoV Pk Grad: 11.00 Aov Mn Grad: 6.00 NGUYEN Cont.VTI: 2.65 LVOT LVOT Pk Miguelangel: 1.19 LVOT Mn Miguelangel: 0.85 LVOT VTI: 0.24 LVOT Pk Grad: 6.00 LVOT Mn Grad: 3.00 LVOT Diam: 2.20 LVOT Area: 3.80 Diastolic Function MV Pk E: 0.85 MV Pk A: 0.97 E/A: 0.90 E'Medial: 7.29 E/E' Med: 11.60 E' Laterial: 9.25 E/E' Lat: 9.20 Right Ventricle TAPSE (mm): 23.00 TVS' Miguelangel: 11.90 Tricuspid Valve TR Pk Miguelangel: 2.28 TR Pk Grad: 21.00 RA Press: 3.00 RVSP: 24.00 Great Vessels Aorta Sinus of Valsalva: 3.29 2.0-3.[address] Ridge: 2.74 1.7-3.4 cm Ao Asc: 3.60 2.1-3.4 cm Ao Arch: 3.00 Pulmonary Veins Pulm Vein S/D 1.10 Updated in Other Vendor System with Status of Final Christian King MD electronically signed on 04/05/2025 4:25:00 PM with status of Final
--- OUTSIDE RECORDS SUMMARY | 2025-04-05 11:09 | XMS_ITS | Clinical Summary ---
Author Organization [facility] Address [address] [place] [id number] Phone Care Team Providers Care Amusement Ride Inspector Name Role Phone Daniela Cuenca DO Primary [...] VACCINE (#1) 2025 COVID-19 VACCINE ( - 2024-2 6 season) 2025 Adult Td,Tdap Booster 04/09/2034 04/09/2024 [...] PPO [employer] PPO [employer] PPO [employer] PPO [employer] PPO [employer] PPO Member Subscriber Plan / Payer (Ef fective 2023-Present) Name:Kinjal Fajardo Relation to Subscriber:Spouse Name:ABE FAJARDO Date of :1900 Address: [address] [place] [address] Payer ID:[id number] (NAIC) Type:PPO Address: [facility] [id number] [place] [id number] Care Teams Amusement Ride Inspector Relationship Specialty Start Date End Date Joellen Seankevinnancy RyanDO [address] [facility] [address] [place] [address] PCP - General Internal Medicine 04/09/24 Additional Source Comments The information contained in this document represents components of the legal health record. It is not the complete legal health record.[facility]
--- OUTSIDE RECORDS SUMMARY | 2025-04-05 11:09 | XMS_ITS | Patient Health Record ---
Author Organization [facility] Address [address] [place] [address] Care Team Providers Care Senior Software Architect Name Role Phone CASEY BIRD DO Primary Care Provider Unajenaro samra Dewitt, Soni Unavailable [phone] Allergies Allergen (clinical drug ingredient) Drug/Non Drug Allergy documented on EMR Reaction Allergy Type Onset Date Status Taxol anaphylaxis Drug Allergy Activ e Results Component Value Reference Range Notes Urine Culture, Routine-[id number] Reviewed date:01/12/2025 04:26:11 PM Interpretation: Performing Lab:Mary Headley, [address] [place] [address], [place], Phone - [phone], Director - Lisandro Notes/Report: Urine Culture, Routine [...] Tetracycline S Tobramycin S Trimethoprim/Sulfa S Urinalysis, Complete-[id number] Reviewed date:01/12/2025 04:26:34 PM Interpretation: Performing Lab:Mary Headley, [address] [facility], Phone - [phone], Director - Lisandro Notes/Report: Specific Pierz 1.020 1.005-1.030 pH 6.0 5.0-7.5 Urine-Color Yellow [...] 04:20:46 PM Interpretation: Performing Lab:[facility], [address] [facility], Phone - [phone], Director - Lisandro Notes/Report: PDF Report Reviewed date:01/12/2025 05:58:25 AM Interpretation: Performing Lab:[address], [address], [place], Phone - [phone], [facility] - [facility] Notes/Report: Clinical Information:VAG/CERV [id number] LMP / Prev Treat...[id number] Other..............Post Menopausal No. of containers..01 ThinPrep Vial [id number] IGP No Culture 30 Plus Reviewed date:01/12/2025 05:58:54 AM Interpretation: Performing Lab:Mary Dove [address], [address], [place], Phone - [phone], Director - [facility] Notes/Report: Clinical Information:VAG/CERV [id number] LMP / Prev Treat...[id number]=[id number] Other..............Post Menopausal No. of containers..01 ThinPrep Vial DIAGNOSIS: NEGATIVE FOR INTRAEPITHELIAL LESION OR MALIGNANCY. Specimen adequacy: Satisfactory for evaluation. Endocervical and/or squamous metaplastic cells (endocervical component) are present. Clinician provided ICD10: Z01.419 Z11.51 Performed by: Cassi ortiz, Transport Nurse (ASCP) . . Note: The Pap smear [...] Criteria not met, HPV Genotype not performed. Reason For Referral No Information Medications Medication [...] W/U Status Risk Notes Problem Urinary incontinence (690533760) Unspecified urinary incontinence (R32) Active confirmed Problem Essential hypertension (37094685) Essential (primary) hypertension (I10) Active confirmed Problem Malignant neoplasm of female breast (631387267) Malignant neoplasm of unspecified site of unspecified female breast (C50.919) Active confirmed Problem Functional urinary incontinence (561950971) Functional urinary incontinence (R39.81) Active confirmed Problem Personal history of primary malignant neoplasm of breast (531262935) Personal history of malignant neoplasm of breast (Z85.3) Active confirmed Vital Signs Temperature 97.8 degrees Fahrenheit 01/10/2025 Blood pressure diastolic 88 mm Hg 01/10/2025 Height 71 in 01/10/2025 Blood pressure systolic 157 mm Hg 01/10/2025 Weight 280 lbs 01/10/2025 BMI 39.05 kg/m2 01/10/2025 Encounters Encounter Location Date Provider Diagnosis [employer] [place] [address] [address] [facility] [address] [place] [address] 01/10/2025 Soni Dewitt Encounter for screening for human papillomavirus (HPV) Z11.51 ; Encounter for screening mammogram for malignant neoplasm of breast Z12.31 ; Personal history of malignant neoplasm of breast Z85.3 ; Unspecified urinary incontinence R32 and Encounter for gynecological examination (general) (routine) without abnormal findings Z01.419 [employer] [place] [address] [address] [facility] [address] [place] [address] 01/12/2025 Soni Dewitt Urinary tract infection, site [...] 01/10/2025 MM Digital Mammo Screening 01/10/2025 Urinalysis, Complete-[id number] 01/12/2025 Urine Culture, Routine-[id number] 01/12/2025 Next Appt Details Provider Name:Soni marcos, 01/11/2026 02:00:00 PM, [address] [facility], [address], [place], [address], Insurance Providers Payer Name Payer Address Payer Phone Subscriber Number Group Number Insured Name Patient Relationship to Insured Coverage Start Date Coverage End Date [facility] [address] [place] [address] [phone] [id number] UYE FAJARDO Self - patient is the insured [...]
== END ==
LOC: HO.CARD 09:40
DX: R00.2 Palpitations (principal); I10 Essential (primary) hypertension
CPT/HCPCS: 93242; 93306

== ENCOUNTER → 2025-04-05 09:44 | Outpatient (BNV) | payer OTHER, SELFPAY | PROVIDERS: Visit Provider Internal Medicine Cardiovascular Disease | DX: I51.89 Other ill-defined heart diseases (principal) | CPT/HCPCS: 93306 ==

== ENCOUNTER 2025-05-29 22:45 | Emergency (ER) | payer OTHER, MEDICAID, SELFPAY ==
--- OUTSIDE RECORDS SUMMARY | 2024-07-20 08:40 | XMS_ITS ---
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 :1965 A ge:59 Y S ex:Female Date:07/20/2024 Address:[address] [place], [place] [id number] Pcp:CASEY BIRD DO Subjective: * Chief Complaints: * 1 . 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 * Medical History: Objective: * Vitals: Assessment: Plan: * Treatment: * Images: Billing Information: * Visit Code: * Procedure Codes: * Electronic signature of Olivia Dewitt MD on 05/30/2025 at 12:51 AM EST Sign off status: Pending * Appointment Provider: Boo Dewitt M.D. Date: 0 07/20/2024 Generated for Solo conner/Dilshad/Yadiel on: 1 07/31/2024 12:51 AM EST
[2025-05-29 22:54] VITALS: BP 162/90; PULSE 104; O2SAT 97
[2025-05-29 23:20] VITALS: BP 173/77; PULSE 96; RESP 16; O2SAT 97; BMI 37.3
--- NOTE | 2025-05-29 23:27 | ECG_ITS ---
Test Reason : HTN Blood Pressure : */* mmHG Vent. Rate : 86 BPM Atrial Rate : 86 BPM P-R Int : 166 ms QRS Dur : 100 ms QT Int : 398 ms P-R-T Axes : 60 18 69 degrees QTcB Int : 476 ms Sinus rhythm with Premature supraventricular complexes Minimal voltage criteria for LVH, may be normal variant ( [place] product ) Borderline ECG When compared with ECG of 11-Feb-2025 01:59, Premature supraventricular complexes are now Present Referred By: Junior Cat Electronically Signed By: LÁZARO MAYEN MD
--- NOTE | 2025-05-29 23:28 | ED_ITS ---
HPI - General Adult General Chief complaint: General Medical Stated complaint: HTN 178/89 Time Seen by Provider: 05/30/25 00:42 Source: patient Mode of arrival: ambulatory Limitations: no limitations History of Present Illness ED Provider: Junior BARRON HPI narrative: The patient is a 60-year-old female with a history of hypertension recently started amlodipine 1 month ago presenting for evaluation of hypertension. Patient initially forgot to take her amlodipine today, but then took it around noon time. While at home blood pressure was elevated at 181/96. Patient reported a slight headache at home which has since resolved, spoke with daughter about symptoms and EMS was activated. Patient denies associated chest pain or active headache. Patient reports she has also been experiencing some intermittent dysuria which began today, denies associated fever, nausea, vomiting or other systemic complaint. Related Data Home Medications ?Medication ?Instructions ?Recorded ?Confirmed aspirin 81 mg tablet,delayed 81 mg PO DAILY 03/01/25 0 03/01/25 release (Adult Low Dose Aspirin) coenzyme Q10 100 mg capsule 100 mg PO DAILY 03/01/25 0 03/01/25 (CoQ-10) magnesium 200 mg tablet 200 mg PO DAILY 03/01/2505/15 Previous Rx's ?Medication ?Instructions ?Recorded hydrochlorothiazide 12.5 mg capsule 12.5 mg PO DAILY # 90 caps 02/09/25 lisinopril 20 mg tablet 20 mg PO DAILY #90 tabs 02/19 07/15 cephalexin 500 mg capsule 500 mg PO QID #28 caps 05/30 Allergies Allergy/AdvReac Type Severity Reaction Status Date / Time paclitaxel (From Taxol) Allergy Anaphylaxis Verified 05/29/25 23:28 Review of Systems 2 Review of Systems: Yes all other systems are reviewed and are negative [facility] Past Medical History Medical History Hypertension Family History Family History Mother Pacemaker Father Pacemaker Social History Social History Advance Directives: No Advance Directives Information Provided: Yes Physical Exam ED Vital Signs: Vital Signs - 24 hr 05/29/25 23:20 05/30/25 01:24 Temperature 98 F Pulse Rate 96 96 Respiratory Rate 16 16 Blood Pressure 173/77 H 173/77 H Pulse Oximetry 97 97 Oxygen Delivery Method Room Air Room Air BMI result Body Mass Index 37.3 CONSTITUTIONAL: The patient appears non-toxic, well nourished and in no acute distress. Vital signs as documented. HEAD: Atraumatic, normocephalic. EYES: EOMs grossly intact, pupils equal, conjunctiva clear, no exudate. ENT: Nares patent, no discharge. Airway patent, no audible stridor, visible mucosa is pink and moist without noted lesions. NECK: Trachea is midline, no obvious masses or gross abnormalities. CHEST: Symmetric movement, normal appearance. LUNGS: LS present and CTAB, no w/r/r. Non-labored work of breathing. CARDIAC: Regular Rhythm, S1/S2 appreciated, no murmurs, rubs or gallops. ABDOMEN: Abdomen soft and non-tender x4 quadrants, no palpable masses or organomegaly. : Deferred. EXTREMITIES: Normal tone, moves all extremities spontaneously without reported pain. No obvious acute injury or deformity noted. NEURO: Alert and oriented x3, CN II-XII appear grossly intact. Cerebellar Functioning grossly intact. No obvious sensory or motor deficits. Speech clear and appropriate. PSYCH: normal affect, appropriate eye contact, fluid speech, with appropriate response to questioning. No reported suicidality or homicidality. SKIN: Warm, dry, color appropriate, normal turgor. No rashes noted. Course Course Course Narrative: 11:29 PM 05/29/2025 (Dax BARRON): Rapid medical examination performed, full details of HPI, exam, MDM, care plan and disposition deferred to primary provider. 60-year-old female with a history of hypertension recently started amlodipine 1 month ago presenting for evaluation of hypertension. Patient initially forgot to take her amlodipine today, but then took it around noon time. While at home blood pressure was elevated at 181/96. Patient reported a slight headache at home which has since resolved, spoke with daughter about symptoms and EMS was activated. Patient denies associated chest pain or active headache. Patient reports she has also been experiencing some intermittent dysuria which began today, denies associated fever, nausea, vomiting or other systemic complaint. BP in triage 173/77, patient educated regarding emergent versus nonemergent intervention for hypertension, patient reported feeling reassured. Ordered for EKG, troponin, basic labs, and urinalysis. Returned to waiting room. Advised to notify staff if worsening symptoms or if considering leaving prior to treatment complete. Medications Administered Discontinued Medications Generic Name Dose Route Start Last Admin Trade Name Alcira PRN Reason Stop Dose Admin Cephalexin HCl 500 mg 05/30/25 01:10 05/30/25 01:21 Cephalexin 500 Mg Capsule PO 05/30/25 01:11 500 mg ONCE ONE Administration Medical Decision Making Medical Decision Making [facility] Narrative: 12:56 AM 05/30/2025 (Dax BARRON): The patient is a 60-year-old female with a history of hypertension recently started amlodipine 1 month ago presenting for evaluation of hypertension. Patient initially forgot to take her amlodipine today, but then took it around noon time. While at home blood pressure was elevated at 181/96. Patient reported a slight headache at home which has since resolved, spoke with daughter about symptoms and EMS was activated. Patient denies associated chest pain or active headache. Patient reports she has also been experiencing some intermittent dysuria which began today, denies associated fever, nausea, vomiting or other systemic complaint. BP in triage 173/77, patient educated regarding emergent versus nonemergent intervention for hypertension, patient reported feeling reassured. Patient was evaluated EKG, cardiac enzymes, and basic labs. EKG is nonischemic, troponin is negative, laboratory evaluation demonstrates no leukocytosis, anemia, or electrolyte abnormality. The patient has normal renal function, no evidence of end-organ damage. Patient will be discharged to follow up with PCP for continued management of her blood pressure. Admission/Observation Consideration of admission/observation: Escalation of care including admission/observation considered Lab Data [facility] Lab Attestation statement: I reviewed the patient's lab results. 05/30/25 00:24 05/30/25 00:24 Labs: Lab Results 05/30/25 Range/Units 00:24 WBC 10.6 (4.8-10.8) X10*3/uL RBC 4.45 (4.20-5.50) X10*6/uL Hgb 14.0 (12.0-16.0) g/dl Hct 40.2 (37.0-47.0) % MCV 90.3 (80.0-98.0) fL MCH 31.5 (27.0-33.0) pg MCHC 34.8 (31.0-35.0) g/dl RDW 12.8 (11.0-16.0) % Plt Count 249 (160-400) X10*3/uL MPV 9.8 (9.4-12.3) fL Immature Gran % (Auto) 0.5 H (0.0-0.4) % Neut % (Auto) 70.8 (45-73) % Lymph % (Auto) 18.2 L (20-40) % Loup % (Auto) 6.6 (2-11) % Eos % (Auto) 3.3 (0-4) % Baso % (Auto) 0.6 (0-2) % Lymph # (Auto) 1.9 (1.2-4.9) X10*3/uL Loup # (Auto) 0.7 (0.1-1.2) X10*3/uL Eos # (Auto) 0.4 (0.0-0.4) X10*3/uL Baso # (Auto) 0.1 (0.0-0.2) X10*3/uL Abs Immat Gran (auto) 0.05 H (0.00-0.03) X10*3/uL Absolute Neuts (auto) 7.5 (2.0-8.3) x10*3/uL Absolute Nucleated RBC 0.000 (0.0-0.012) X10*3/uL Nucleated RBC % (auto) 0.0 (0.0-0.2) /100WBC Sodium 141 (135-145) mmol/L Potassium 3.7 (3.3-5.1) mmol/L Chloride 109 H (96-108) mmol/L Carbon Dioxide 24 (22-29) mmol/L Anion Gap 12 (12-20) BUN 10 (9-16) mg/dL Creatinine 0.61 (0.5-1.4) mg/dL Estim Creat Clear Calc 143.4 Estimated GFR > 60 Random Glucose 134 H (60-115) mg/dL Calcium 8.9 (8.4-10.2) mg/dL Total Bilirubin 0.3 (0.0-1.0) mg/dL AST 30 (5-31) U/L ALT 30 (0-31) U/L Alkaline Phosphatase 82 (39-117) U/L Troponin I High Sens 4.2 D (<3.5-17.0) ng/L Total Protein 7.3 (6.5-8.0) g/dL Albumin 4.3 (3.5-5.0) g/dL Urine Color Yellow Urine Appearance Clear Urine pH 5.5 (5.0-9.0) Ur Specific [place] 1.010 (1.005-1.025) Urine Protein Negative (Neg-Trace) mg/dL Urine Glucose (UA) Negative (Negative) mg/dL Urine Ketones Negative (Negative) mg/dL Urine Blood Negative (Negative) Urine Nitrite Negative (Negative) Ur Leukocyte Esterase Trace H (Negative) Urine RBC 0-2 (0-2) /HPF Urine WBC 6-10 H (0-5) /HPF Ur Squamous Epith Cells 0-2 (0-2) /HPF Urine Bacteria None Seen (None Seen) Hyaline Casts 0-2 (0-2) /LPF Independent Interpretation I performed an independent interpretation of an: EKG (EKG shows sinus rhythm with occasional PACs with a rate of 86, no evidence of acute ischemia, no ST elevation, no ectopy. QTC 476, compared to previous on 02/11/2025 PACs are new, however no other significant morphology changes.) External Record Review External record reviewed: Outpatient record and Prior outpatient labs Chronic Conditions Patient?s care impacted by: Hypertension Discharge Plan Discharge Clinical Impression: Hypertension Qualifiers: Hypertension type: unspecified Qualified Code(s): I10 - Essential (primary) hypertension UTI (urinary tract infection) Qualifiers: Urinary tract infection type: acute cystitis Hematuria presence: without hematuria Qualified Code(s): N30.00 - Acute cystitis without hematuria Patient Disposition: Home, Self-Care Instructions: Urinary Tract Infection in Women (ED), Chronic Hypertension (ED), Hypertension (ED) Additional Instructions: Thank you for choosing [facility] Emergency Department for your care today. Thankfully your EKG, laboratory evaluation, exam, and vital signs today are reassuring. At this time there is no indication for admission to the hospital or continued ED observation, and it is safe to discharge you home. Your blood pressure was moderately elevated however thankfully there was no evidence of end-organ damage and your blood pressure does not currently require emergent lowering with IV medication. Your urinalysis does show evidence of white blood cells, and seeing as you are having painful urination, we are treating you for a presumed urinary tract infection. Please take cephalexin as prescribed until it is finished. Please continue taking your other medications, including blood pressure medications, as prescribed until follow up with the your PCP tomorrow. Please follow up with your primary care provider at your appointment tomorrow for re- evaluation, additional management of your blood pressure, and continued preventative care. Please return to the emergency department if you develop a severe or sudden change in your symptoms, a fever over 100.4 that does not improve with Tylenol or Ibuprofen, recurrent vomiting, or any other new or worsening symptoms or concerns. Prescriptions: New cephalexin 500 mg capsule 500 mg PO QID Qty: 28 0RF No Action hydrochlorothiazide 12.5 mg capsule 12.5 mg PO DAILY Qty: 90 0RF aspirin [Adult Low Dose Aspirin] 81 mg tablet,delayed release (DR/EC) 81 mg PO DAILY magnesium 200 mg tablet 200 mg PO DAILY coenzyme Q10 [CoQ-10] 100 mg capsule 100 mg PO DAILY lisinopril 20 mg tablet 20 mg PO DAILY Qty: 90 3RF Interventions: ED Discharge Assessment Last Done: 05/30/25 01:24 Discharge Date/Time: 05/30/25 01:25 Print Language: Irish
[2025-05-30 00:30] LABS: MANUAL DIFF FLAG NO
[2025-05-30 00:34] LABS: Appearance Urine Clear; Glucose Urine UA Negative (Negative); PH 5.5 (5.0-9.0); Specific Gravity - Urine 1.010 (1.005-1.025); UMIC TRIGGER UACC YES
[2025-05-30 00:36] LABS: Hematocrit 40.2 % (37.0-47.0); Hemoglobin 14.0 g/dl (12.0-16.0); Imm Gran Abs Auto 0.05 X10*3/uL (0.00-0.03); Imm Gran Pct Auto 0.5 % (0.0-0.4); Lymphocytes Absolute Auto 1.9 X10*3/uL (1.2-4.9); Mean Corpuscular HGB Conc 34.8 g/dl (31.0-35.0); Mean Corpuscular Hemoglobin 31.5 pg (27.0-33.0); Mean Corpuscular Volume 90.3 fL (80.0-98.0); NRBC Abs Auto 0.000 X10*3/uL (0.0-0.012); NRBC Pct Auto 0.0 /100WBC (0.0-0.2); Platelet Count 249 X10*3/uL (160-400); Red Blood Count 4.45 X10*6/uL (4.20-5.50); White Blood Count 10.6 X10*3/uL (4.8-10.8)
[2025-05-30 00:39] LABS: UACC Culture Trigger YES
[2025-05-30 00:50] LABS: Albumin Level 4.3 g/dL (3.5-5.0); Alkaline Phosphatase 82 U/L (39-117); Anion Gap 12 (12-20); Aspartate Amino Transferase 30 U/L (5-31); Blood Urea Nitrogen 10 mg/dL (9-16); Calcium 8.9 mg/dL (8.4-10.2); Carbon Dioxide 24 mmol/L (22-29); Chloride 109 mmol/L (96-108); Creatinine Clr Calc Pharmacy 143.4; Estimated Glomerular Filt Rate > 60; Potassium 3.7 mmol/L (3.3-5.1); Sodium 141 mmol/L (135-145); Total Protein 7.3 g/dL (6.5-8.0)
--- OUTSIDE RECORDS SUMMARY | 2025-05-30 00:51 | XMS_ITS | Patient Health Record ---
Author Organization [facility] Address [address] [place] [address] Care Team Providers Care Client Solutions Director Name Role Phone CASEY BIRD DO Primary Care Provider Unajenaro samra DewittSoni vanegas Unavailable [phone] Allergies Allergen (clinical drug ingredient) Drug/Non Drug Allergy documented on EMR Reaction Allergy Type Onset Date Status Taxol anaphylaxis Drug Allergy Activ e Results Component Value Reference Range Notes Urinalysis Reviewed date:01/10/2025 04:51:36 PM Interpretation: Performing Lab: Notes/Report: NITRITE POS PH 5.0 PROTEIN Small S.G 1.005 WBC LG GLUCOSE Neg KETONES Neg UROBILINOGEN Neg BILIRUBIN Neg BLOOD Small Urinalysis, Complete-[id number] Reviewed date:01/12/2025 04:26:34 PM Interpretation: Performing Lab:Mary Headley, [address] [place] [address], Phone - [phone], Director - Lisandro Notes/Report: Specific [place] 1.020 1.005-1.030 pH 6.0 5.0-7.5 Urine-Color Yellow [...] None seen /lpf Bacteria Many None seen/Few Urine Culture, Routine-[id number] Reviewed date:01/12/2025 04:26:11 PM Interpretation: Performing Lab:Mary Headley, [address] [place] [address], Phone - [phone], Director - Lisandro Notes/Report: Urine Culture, Routine [...] S Tetracycline S Tobramycin S Trimethoprim/Sulfa S [id number] IGP No Culture 30 Plus Reviewed date:01/12/2025 05:58:54 AM Interpretation: Performing Lab:[facility] [place], [address], [address], [place], Phone - [phone], Director - [facility] Notes/Report: Clinical Information:VAG/CERV [id number] LMP / Prev Treat...[id number]=[id number] Other..............Post Menopausal No. of containers..01 ThinPrep Vial DIAGNOSIS: NEGATIVE FOR INTRAEPITHELIAL LESION OR MALIGNANCY. Specimen adequacy: Satisfactory for evaluation. Endocervical and/or squamous metaplastic cells (endocervical component) are present. Clinician provided ICD10: Z01.419 Z11.51 Performed by: Cassi ortiz, Tile Trimmer (ASCP) . . Note: The Pap smear [...] Criteria not met, HPV Genotype not performed. PDF Report Reviewed date:01/12/2025 05:58:25 AM Interpretation: Performing Lab:[facility] [place], [address], [address], [place], Phone - [phone], Director - Heather Notes/Report: Clinical Information:VAG/CERV [id number] LMP / Prev Treat...[id number] Other..............Post Menopausal No. of containers..01 ThinPrep Vial PDF Report Reviewed date:01/12/2025 04:20:46 PM Interpretation: Performing Lab:[facility], [address] [place], [place], Phone - [phone], Director - Lisandro Notes/Report: Reason For Referral [...] W/U Status Risk Notes Problem Urinary incontinence (593776407) Unspecified urinary incontinence (R32) Active confirmed Problem Essential hypertension (46834079) Essential (primary) hypertension (I10) Active confirmed Problem Malignant neoplasm of female breast (811534423) Malignant neoplasm of unspecified site of unspecified female breast (C50.919) Active confirmed Problem Functional urinary incontinence (192283375) Functional urinary incontinence (R39.81) Active confirmed Problem Personal history of primary malignant neoplasm of breast (587834376) Personal history of malignant neoplasm of breast (Z85.3) Active confirmed Vital Signs Temperature 97.8 degrees Fahrenheit 01/10/2025 Blood pressure diastolic 88 mm Hg 01/10/2025 Height 71 in 01/10/2025 Blood pressure systolic 157 mm Hg 01/10/2025 Weight 280 lbs 01/10/2025 BMI 39.05 kg/m2 01/10/2025 Encounters Encounter Location Date Provider Diagnosis [facility] [place] [address] [address] [facility] [address] [place] [address] 01/10/2025 Soni Dewitt Encounter for screening for human papillomavirus (HPV) Z11.51 ; Encounter for screening mammogram for malignant neoplasm of breast Z12.31 ; Personal history of malignant neoplasm of breast Z85.3 ; Unspecified urinary incontinence R32 and Encounter for gynecological examination (general) (routine) without abnormal findings Z01.419 [facility] [place] [address] [address] [facility] [address] [place] [address] 01/12/2025 Soni Dewitt Urinary tract infection, site [...] 01/10/2025 MM Digital Mammo Screening 01/10/2025 Urinalysis, Complete-[id number] 01/12/2025 Urine Culture, Routine-[id number] 01/12/2025 Next Appt Details Provider Name:Soni marcos, 01/11/2026 02:00:00 PM, [address] [facility], [address], [place], [address], Insurance Providers Payer Name Payer Address Payer Phone Subscriber Number Group Number Insured Name Patient Relationship to Insured Coverage Start Date Coverage End Date [facility] [address] [place] [address] [phone] [id number] FAJARDO Self - patient is the [...]
--- OUTSIDE RECORDS SUMMARY | 2025-05-30 00:51 | XMS_ITS | Clinical Summary ---
Author Organization [facility] Address [address] [place] [address] Phone Care Team Providers Care Marketing Research Analyst Name Role Phone Daniela Cuenca DO Primary [...] PPO [employer]IL[employer]IM PASSPORT PPO PIL[employer]IM PASSPORT PPO [email or web address] PASSPORT PPO [employer]IM PASSPORT PPO [employer] PASSPORT PPO Member Subscriber Plan / Payer (Ef fective 2023-Present) Name:Kinjal Fajardo Relation to Subscriber:Spouse Name:ABE FAJARDO Date of :1900 Address: [address] [place] [address] Payer ID:[id number] (NAIC) Type:PPO Address: [facility] [id number] [place] [id number] Care Teams Marketing Research Analyst Relationship Specialty Start Date End Date Joellen Seankevinnancy RyanDO [address] [facility] [address] [place] [address] PCP - General Internal Medicine 04/09/24 Additional Source Comments The information contained in this document represents components of the legal health record. It is not the complete legal health record.[facility]
[2025-05-30 00:52] LABS: Troponin-I High Sensitivity 4.2 ng/L (<3.5-17.0)
[2025-05-30 01:02] LABS: Alanine Aminotransferase 30 U/L (0-31)
[2025-05-30 01:24] VITALS: BP 173/77; PULSE 96; RESP 16; TEMP 36.6; O2SAT 97
== END 2025-05-30 01:25 | disposition home or self-care (01) ==
PROVIDERS: Physician Assistant; Emergency Provider Emergency Medicine
DX: N30.00 Acute cystitis without hematuria (principal); I10 Essential (primary) hypertension; Z79.82 Long term (current) use of aspirin; Z79.899 Other long term (current) drug therapy
CPT/HCPCS: 36415; 80053; 81001; 84484; 85025; 87086; 93005; 99283

== ENCOUNTER → 2025-05-29 23:27 | Outpatient (BNV) | payer OTHER, MEDICAID, SELFPAY | PROVIDERS: Emergency Provider Emergency Medicine; Visit Provider Internal Medicine Cardiovascular Disease | DX: I49.3 Ventricular premature depolarization (principal) | CPT/HCPCS: 93010 ==

== ENCOUNTER 2025-06-17 12:32 | Emergency (ER) | payer OTHER, MEDICAID, SELFPAY ==
--- OUTSIDE RECORDS SUMMARY | 2024-07-20 08:40 | XMS_ITS ---
Author Organization [facility] [email or web address] [facility] Address 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 [place] [address] 07/20/2024 Soni Dewitt Plan Of Treatment Next Appt Details Provider Name:Soni marcos, 01/11/2026 02:00:00 PM, [address], [address], [place], [address], Progress Notes * DWAYNE FAJARDOOB: [birth year] (60 yo F)Acc No.[id number]:07/20/2024 Progress Note Patient: Eliud MONROEYUE BERTRAND Appointment Provider: Boo Dewitt M.D. :1965 A ge:59 Y S ex:Female Date:07/20/2024 Address:[address] [place], [place] [id number] Pcp:CASEY BIRD DO Subjective: * Chief Complaints: * 1 . 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 * Medical History: Objective: * Vitals: Assessment: Plan: * Treatment: * Images: Billing Information: * Visit Code: * Procedure Codes: * Electronic signature of Olivia Dewitt MD on 06/17/2025 at 01:48 PM EST Sign off status: Pending * Appointment Provider: Boo Dewitt M.D. Date: 0 07/20/2024 Generated for Solo conner/Dilshad/Yadiel on: 1 08/18/2024 01:48 PM EST
--- OUTSIDE RECORDS SUMMARY | 2025-06-13 23:59 | XMS_ITS | Continuity of Care Document ---
Author Organization [facility] Address [address] [place] [address]- Care Team Providers Care Newspaper Correspondent Name Role Phone Daniela Cuenca DO Primary Care Physician Encounter [facility] Date(s): 05/14/25 - 06/13/25 [facility] [address] [place] [address]- Attending Physician: Chidi Hernadez Admitting Physician: Chidi Hernadez Referring Physician: Chidi Hernadez Encounter Type: Triage Allergies, Adverse Reactions, Alerts Substance Criticality Severity Reaction Reaction Severity Status Taxol Active Adhesive Bandage 1 Unable to assess criticality Persistent Moderate Integrity of skin Active 1if the adhesive bandaid been on long period, pt has reaction Immunizations Given and Recorded Vaccine Date Status Refusal Reason tetanus/diphtheria/pertussis, acel(Tdap) 10/10/10 Given Medications Amlodipine By Mouth, Daily, 0 Refills, Maintenance, 05/14/25 3:04:00 PM EST, Partial fill upon patient requestif the prescription is for a schedule II opioid drug. Start Date: 05/14/25 Status: Ordered Medication Dispense Status: Completed Total Allowed Fills: 1 Fills Dispensed: 0 hydrochlorothiazide-lisinopril 12.5 mg-10 mg oral tablet 1 tablet, By Mouth, Daily, # 90 tablet, 3 Refills, Maintenance, 01/12/24 8:50:00 PM EDT, Tablet, [id number], Partial fill upon patient request if the prescription is for a schedule IIopioid drug., 1 tablet By Mouth Daily,x90 days, 183, cm, 01/12/24 20:07:00 EDT, Height, 127.5, kg, 01/12/24 20:07:00 EDT, Dry Weight Start Date: 01/12/24 Stop Date: 01/06/25 Status: Ordered Medication Dispense Status: Completed Quantity: 90.0 Unit: tablet Total Allowed Fills: 4 Fills Dispensed: 0 hydrochlorothiazide-lisinopril 12.5 mg-20 mg oral tablet 1 tablet, By Mouth, Daily, # 30 tablet, 0 Refills, Maintenance, 08/10/23 6:55:00 AM EST, Tablet, [facility] #[id number], Partial fill upon patient request if the prescription is for a schedule IIopioid drug., 1 tablet By Mouth Daily, 183, cm, 08/10/23 6:23:00 EST, Height, 125.6, kg, 08/10/23 6:23:00 EST, Dry Weight Start Date: 08/10/23 Status: Ordered Medication Dispense Status: Completed Quantity: 30.0 Unit: tablet Total Allowed Fills: 1 Fills Dispensed: 0 Problem List Condition Confirmation Course Effective Dates Status Health St atus Informant Bronchitis Confirmed Active Carcinoma of breast - upper, outer quadrant Confirmed Active Depression Confirmed Active High blood cholesterol Confirmed Active Hypertension Confirmed Active Asthma Confirmed Active 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 Severe obesity (BMI 35.0-39.9) with comorbidity Confirmed Active Social History Social History Type Response Smoking Status Former smoker, quit more than 30 days ago; Other: Quit 2008; entered on: 03/02/19 Sex Sex Representation Female (finding) Patient Care team information Care Team Personnel Name: Cookie Loredo MD Position: [facility] Physician - Oncology Member Role: Lifetime Consulting Physician Address: [address] [place] [address] Hematology Oncology [address] Telecom: Name: Daniela Cuenca DO Position: [facility] Physician (General Medicine) Member Role: PCP Address: [address] [place] [address] [place] [address]- [place] Telecom: Care Team Related Persons Name: MCIAELA TIWARI Name: MITZI FAJARDO Name: ABE FAJARDO Insurance Providers Guarantor name: YUE FAJARDO Health Plan Information #: 1 Payer: [employer] Payer Identifier: NA Member Number: [id number] Group Number: [id number] Subscriber Identifier: NA Relationship to Subscriber: spouse Coverage Type: Managed Care (Private) Coverage Verification Date: NA Telecom: NA Address: NA Health Plan Information #: 2 Payer: [employer] Payer Identifier: NA Member Number: [id number] Group Number: [id number] Subscriber Identifier: NA Relationship to Subscriber: self Coverage Type: MEDICAID Coverage Verification Date: NA Telecom: NA Address:
--- NOTE | ~2025-06-17 | XR_ITS ---
CLINICAL HISTORY: cough, weakness Chest Radiographs, 2 views Comparison: CR - XR CHEST 2V - 02/09/25 18:47 EDT CR - XR CHEST 2V - 07/17/24 22:[address]/CA/SR - CTA CHEST WOW RECON [id number] - 08/29/17 21:33 EDT Findings: No cardiomegaly. Normal mediastinal contours. No pneumothorax. No opacity. No pleural effusion. No acute findings in the upper abdomen. No acute fracture. Impression: No acute findings. This document has been electronically signed by: Teena Johnson MD on 06/17/2025 16:17:15
[2025-06-17 12:51] VITALS: BP 151/70; BP 154/94; PULSE 104; PULSE 122; RESP 18; TEMP 37.7; O2SAT 96; O2SAT 98; BMI 35.6
--- NOTE | 2025-06-17 13:02 | ED_ITS ---
HPI - General Adult General Chief complaint: Upper Respiratory Symptoms Stated complaint: FLU LIKE SX X3D PER EMS Time Seen by Provider: 06/17/25 13:02 History of Present Illness ED Provider: Tam ROB narrative: The patient is a 60-year-old female who says that she has been sick for about 3 days with cough, body aches, headache, dizziness, and fatigue. She also says that she has also had problems with dysuria. She was seen here on May 30. At that time she had an abnormal urinalysis and was put on oral cephalexin. She is concerned that she is still having urinary discomfort, frequency, and urgency. Related Data Home Medications ?Medication ?Instructions ?Recorded ?Confirmed aspirin 81 mg tablet,delayed 81 mg PO DAILY 03/01/25 0 03/01/25 release (Adult Low Dose Aspirin) coenzyme Q10 100 mg capsule 100 mg PO DAILY 03/01/25 0 03/01/25 (CoQ-10) magnesium 200 mg tablet 200 mg PO DAILY 03/01/2505/15 Previous Rx's ?Medication ?Instructions ?Recorded hydrochlorothiazide 12.5 mg capsule 12.5 mg PO DAILY # 90 caps 02/09/25 lisinopril 20 mg tablet 20 mg PO DAILY #90 tabs 02/19 07/15 cephalexin 500 mg capsule 500 mg PO QID #28 caps 05/30 ibuprofen 400 mg tablet 400 mg PO Q6H PRN pain #14 t abs 06/17/25 oseltamivir 75 mg capsule 75 mg PO Q12H 5 days #9 caps 06/17/25 Allergies Allergy/AdvReac Type Severity Reaction Status Date / Time paclitaxel (From Taxol) Allergy Anaphylaxis Verified 06/17/25 12:54 Review of Systems 2 Review of Systems: Yes all other systems are reviewed and are negative [facility] Past Medical History Medical History Hypertension Family History Family History Mother Pacemaker Father Pacemaker Social History Social History Use of substances other than those prescribed or required for medical reasons: No Advance Directives: No Advance Directives Information Provided: Yes Do you have a plan to hurt others: No Plan Patient : No Physical Exam ED Vital Signs: Vital Signs - 24 hr 06/17/25 12:51 Temperature 99.9 F Pulse Rate 104 H Respiratory Rate 18 Blood Pressure 151/70 H Pulse Oximetry 96 Oxygen Delivery Method Room Air BMI result Body Mass Index 35.6 Const Other: The patient is awake, alert, pleasant, cooperative. She does not appear in overt distress. She looks mildly unwell. Orientation/consciousness: patient oriented x3 HENMT Other: The face is symmetrical. ?Mucous membranes moist. Eyes Other: Pupils are round equal, conjunctivae are clear, extraocular movements intact General: appearance normal, both eyes and all related structures Neck Neck: Yes normal visual inspection, Yes full ROM and Yes no lymphadenopathy Resp Effort & Inspection: normal respiratory effort Auscultation: clear to auscultation bilaterally Cardio Rate: regular rate Rhythm: regular rhythm Heart sounds: S1 normal heart sound present and S2 normal heart sound present GI Other: Abdomen is soft and nontender Skin Other: The skin is dry and unremarkable General skin exam: no rashes or lesions noted Neuro General: patient oriented x3, tone normal, moves all extremities, no focal motor deficits and CN's II-XI intact bilaterally Extrem Other: There is no calf swelling or tenderness. No asymmetry. No peripheral edema. Medications Administered Discontinued Medications Generic Name Dose Route Start Last Admin Trade Name Viralq PRN Reason Stop Dose Admin Acetaminophen 975 mg 06/17/25 14:03 06/17/25 14:22 Acetaminophen 325 Mg Tablet PO 06/17/25 14:04 975 mg ONCE ONE Administration Ketorolac Tromethamine 15 mg 06/17/25 14:06 06/17/25 14:24 Ketorolac Tromethamine 15 Mg/Ml Vial IVPUSH 06/17/25 14:07 15 mg ONCE ONE Administration Oseltamivir Phosphate 75 mg 06/17/25 14:33 06/17/25 15:09 Oseltamivir Phosphate 75 Mg Capsule PO 06/17/25 14:34 75 mg ONCE ONE Administration Medical Decision Making Medical Decision Making [facility] Narrative: The patient is a 60-year-old woman comes with flu-like symptoms for the last 3 days. She has had a cough, body aches, and a headache. Also dizziness and fatigue. She is also concerned about the possibility of a UTI. The patient was recently here and was placed on antibiotics for a possible UTI. The culture from that visit grew mixed roselia. Today's urinalysis is normal. However her flu swab is positive. Chest x-ray is negative. Other labs are unremarkable. She was treated symptomatically with ketorolac and acetaminophen. She will be started on oseltamivir for the flu. Return if worse. Lab Data 06/17/25 13:16 06/17/25 13:16 Labs: Lab Results 06/17/25 06/17/25 06/17/25 Range/Units 13:14 13:16 14:19 WBC 6.1 (4.8-10.8) X10*3/uL RBC 4.02 L (4.20-5.50) X10*6/uL Hgb 12.7 (12.0-16.0) g/dl Hct 36.1 L (37.0-47.0) % MCV 89.8 (80.0-98.0) fL MCH 31.6 (27.0-33.0) pg MCHC 35.2 H (31.0-35.0) g/dl RDW 12.5 (11.0-16.0) % Plt Count 188 (160-400) X10*3/uL MPV 9.5 (9.4-12.3) fL Immature Gran % (Auto) 0.2 (0.0-0.4) % Neut % (Auto) 77.4 H (45-73) % Lymph % (Auto) 9.3 L (20-40) % [place] % (Auto) 9.6 (2-11) % Eos % (Auto) 2.8 (0-4) % Baso % (Auto) 0.7 (0-2) % Lymph # (Auto) 0.6 L (1.2-4.9) X10*3/uL [place] # (Auto) 0.6 (0.1-1.2) X10*3/uL Eos # (Auto) 0.2 (0.0-0.4) X10*3/uL Baso # (Auto) 0.0 (0.0-0.2) X10*3/uL Abs Immat Gran (auto) 0.01 (0.00-0.03) X10*3/uL Absolute Neuts (auto) 4.8 (2.0-8.3) x10*3/uL Absolute Nucleated RBC 0.000 (0.0-0.012) X10*3/uL Nucleated RBC % (auto) 0.0 (0.0-0.2) /100WBC Sodium 138 (135-145) mmol/L Potassium 3.9 (3.3-5.1) mmol/L Chloride 107 (96-108) mmol/L Carbon Dioxide 24 (22-29) mmol/L Anion Gap 11 L (12-20) BUN 8 L (9-16) mg/dL Creatinine 0.63 (0.5-1.4) mg/dL Estim Creat Clear Calc 131.5 Estimated GFR > 60 Random Glucose 107 (60-115) mg/dL Calcium 8.5 (8.4-10.2) mg/dL Total Bilirubin 0.4 (0.0-1.0) mg/dL AST 32 H (5-31) U/L ALT 25 (0-31) U/L Alkaline Phosphatase 71 (39-117) U/L Total Protein 6.5 (6.5-8.0) g/dL Albumin 3.8 (3.5-5.0) g/dL Urine Color Yellow Urine Appearance Clear Urine pH 7.5 (5.0-9.0) Ur Specific Ferdinand 1.010 (1.005-1.025) Urine Protein Negative (Neg-Trace) mg/dL Urine Glucose (UA) Negative (Negative) mg/dL Urine Ketones Negative (Negative) mg/dL Urine Blood Negative (Negative) Urine Nitrite Negative (Negative) Ur Leukocyte Esterase Negative (Negative) Influenza Type A (PCR) POSITIVE A (Negative) Influenza Type B (PCR) NEGATIVE (Negative) RSV RNA Qual (PCR) NEGATIVE (Negative) SARS-CoV-2 RNA (RT-PCR) NEGATIVE (Negative) Discharge Plan Discharge Clinical Impression: Influenza Patient Disposition: Home, Self-Care Instructions: Influenza (ED) Additional Instructions: You have tested positive for the flu today. Your urine test does not show a UTI. You has been started on a medication that may help with the your flu symptoms. This is called oseltamivir. This should be taken 2 times a day. Take your next dose late this evening. Drink lot of fluids. Use ibuprofen as needed for discomfort. I have sent a prescription to your pharmacy for this. In addition you may use [id number] acetaminophen (Tylenol). Stay in touch with your regular doctor for additional advice as needed. Return to the emergency room if significantly worse. Prescriptions: New oseltamivir 75 mg capsule 75 mg PO Q12H 5 Days Qty: 9 0RF ibuprofen 400 mg tablet 400 mg PO Q6H PRN (Reason: pain) Qty: 14 0RF No Action hydrochlorothiazide 12.5 mg capsule 12.5 mg PO DAILY Qty: 90 0RF cephalexin 500 mg capsule 500 mg PO QID Qty: 28 0RF aspirin [Adult Low Dose Aspirin] 81 mg tablet,delayed release (DR/EC) 81 mg PO DAILY magnesium 200 mg tablet 200 mg PO DAILY coenzyme Q10 [CoQ-10] 100 mg capsule 100 mg PO DAILY lisinopril 20 mg tablet 20 mg PO DAILY Qty: 90 3RF Referrals: Daniela Cuenca DO [Physician, Medical] Interventions: ED Discharge Assessment Last Done: 06/17/25 15:32 Discharge Date/Time: 06/17/25 15:33 Print Language: Mohawk
[2025-06-17 13:23] LABS: MANUAL DIFF FLAG NO
[2025-06-17 13:25] LABS: Hematocrit 36.1 % (37.0-47.0); Hemoglobin 12.7 g/dl (12.0-16.0); Imm Gran Abs Auto 0.01 X10*3/uL (0.00-0.03); Imm Gran Pct Auto 0.2 % (0.0-0.4); Lymphocytes Absolute Auto 0.6 X10*3/uL (1.2-4.9); Mean Corpuscular HGB Conc 35.2 g/dl (31.0-35.0); Mean Corpuscular Hemoglobin 31.6 pg (27.0-33.0); Mean Corpuscular Volume 89.8 fL (80.0-98.0); NRBC Abs Auto 0.000 X10*3/uL (0.0-0.012); NRBC Pct Auto 0.0 /100WBC (0.0-0.2); Platelet Count 188 X10*3/uL (160-400); Red Blood Count 4.02 X10*6/uL (4.20-5.50); White Blood Count 6.1 X10*3/uL (4.8-10.8)
[2025-06-17 13:44] LABS: Alanine Aminotransferase 25 U/L (0-31); Albumin Level 3.8 g/dL (3.5-5.0); Alkaline Phosphatase 71 U/L (39-117); Anion Gap 11 (12-20); Aspartate Amino Transferase 32 U/L (5-31); Blood Urea Nitrogen 8 mg/dL (9-16); Calcium 8.5 mg/dL (8.4-10.2); Carbon Dioxide 24 mmol/L (22-29); Chloride 107 mmol/L (96-108); Creatinine Clr Calc Pharmacy 131.5; Estimated Glomerular Filt Rate > 60; Potassium 3.9 mmol/L (3.3-5.1); Sodium 138 mmol/L (135-145); Total Protein 6.5 g/dL (6.5-8.0)
--- OUTSIDE RECORDS SUMMARY | 2025-06-17 13:49 | XMS_ITS | Clinical Summary ---
Author Organization [facility] Address [address] [place] [address] Phone Care Team Providers Care Tire And Tube Repairer Name Role Phone Daniela Cuenca DO Primary [...] PPO PILGRIM PASSPORT PPO PIL[employer]IM [employer]SPORT PPO WrapMail[employer]IM PASSPORT PPO Lorena GaxiolaIM PASSPORT PPO [employer] Gaxiola[employer] PASSPORT PPO Member Subscriber Plan / Payer (Ef fective 2023-Present) Name:Kinjal Fajardo Relation to Subscriber:Spouse Name:ABE FAJARDO Date of :1900 Address: [address] [place] [address] Payer ID:[id number] (NAIC) Type:PPO Address: [facility] [id number] [place] [id number] Care Teams Tire And Tube Repairer Relationship Specialty Start Date End Date Joellen Seankevinnancy RyanDO [address] [facility] [address] [place] [address] PCP - General Internal Medicine 04/09/24 Additional Source Comments The information contained in this document represents components of the legal health record. It is not the complete legal health record.[facility]
--- OUTSIDE RECORDS SUMMARY | 2025-06-17 13:49 | XMS_ITS | Patient Health Record ---
Author Organization [facility] Address [address] [place] [address] Care Team Providers Care Migration Specialist Name Role Phone CASEY BIRD DO Primary Care Provider Unajenaro Soni Jauregui Unavailable [phone] Allergies Allergen (clinical drug ingredient) Drug/Non Drug Allergy documented on EMR Reaction Allergy Type Onset Date Status Taxol anaphylaxis Drug Allergy Activ e Results Component Value Reference Range Notes [id number] IGP No Culture 30 Plus Reviewed date:01/12/2025 05:58:54 AM Interpretation: Performing Lab:[facility], [address], [address], [place], Phone - [phone], Director - [facility] Notes/Report: Clinical Information:VAG/CERV [id number] LMP / Prev Treat...EVD=[id number] Other..............Post Menopausal No. of containers..01 ThinPrep Vial DIAGNOSIS: NEGATIVE FOR INTRAEPITHELIAL LESION OR MALIGNANCY. Specimen adequacy: Satisfactory for evaluation. Endocervical and/or squamous metaplastic cells (endocervical component) are present. Clinician provided ICD10: Z01.419 Z11.51 Performed by: Cassi ortiz, Sightseeing Guide (ASCP) . . Note: The Pap smear [...] Criteria not met, HPV Genotype not performed. Urinalysis Reviewed date:01/10/2025 04:51:36 PM Interpretation: Performing Lab: Notes/Report: NITRITE POS PH 5.0 PROTEIN Small S.G 1.005 WBC LG GLUCOSE Neg KETONES Neg UROBILINOGEN Neg BILIRUBIN Neg BLOOD Small Urinalysis, Complete-[id number] Reviewed date:01/12/2025 04:26:34 PM Interpretation: Performing Lab:[facility] [place], [address] [facility], Phone - [phone], Director - Lisandro Notes/Report: Specific [place] 1.020 1.005-1.030 pH 6.0 5.0-7.5 Urine-Color Yellow [...] /lpf Bacteria Many None seen/Few Urine Culture, Routine-[id number] Reviewed date:01/12/2025 04:26:11 PM Interpretation: Performing Lab:[facility], [address] [facility], [place], Phone - [phone], Director - Lisandro Notes/Report: Urine Culture, Routine [...] S Tetracycline S Tobramycin S Trimethoprim/Sulfa S PDF Report Reviewed date:01/12/2025 05:58:25 AM Interpretation: Performing Lab:[facility] [place], [address], [address], [place], Phone - [phone], Director - Heather Notes/Report: Clinical Information:VAG/CERV [id number] LMP / Prev Treat...LSN=[id number] Other..............Post Menopausal No. of containers..01 ThinPrep Vial PDF Report Reviewed date:01/12/2025 04:20:46 PM Interpretation: Performing Lab:[facility] [place], [address], [place], Phone - [phone], Director - Lisandro Notes/Report: Reason For Referral [...] W/U Status Risk Notes Problem Urinary incontinence (382735484) Unspecified urinary incontinence (R32) Active confirmed Problem Essential hypertension (12214202) Essential (primary) hypertension (I10) Active confirmed Problem Malignant neoplasm of female breast (994717089) Malignant neoplasm of unspecified site of unspecified female breast (C50.919) Active confirmed Problem Functional urinary incontinence (885065521) Functional urinary incontinence (R39.81) Active confirmed Problem Personal history of primary malignant neoplasm of breast (121356493) Personal history of malignant neoplasm of breast (Z85.3) Active confirmed Vital Signs Temperature 97.8 degrees Fahrenheit 01/10/2025 Blood pressure diastolic 88 mm Hg 01/10/2025 Height 71 in 01/10/2025 Blood pressure systolic 157 mm Hg 01/10/2025 Weight 280 lbs 01/10/2025 BMI 39.05 kg/m2 01/10/2025 Encounters Encounter Location Date Provider Diagnosis [facility] [place] [address] [facility] [facility] [address] [place] [address] 01/10/2025 Soni Dewitt Encounter for screening for human papillomavirus (HPV) Z11.51 ; Encounter for screening mammogram for malignant neoplasm of breast Z12.31 ; Personal history of malignant neoplasm of breast Z85.3 ; Unspecified urinary incontinence R32 and Encounter for gynecological examination (general) (routine) without abnormal findings Z01.419 [facility] [place] [address] [facility] [address] [place] [address] 01/12/2025 Soni Dewitt Urinary tract infection, site [...] 01/10/2025 MM Digital Mammo Screening 01/10/2025 Urinalysis, Complete-[id number] 01/12/2025 Urine Culture, Routine-[id number] 01/12/2025 Next Appt Details Provider Name:Soni marcos, 01/11/2026 02:00:00 PM, [address], [address], [place], [address], Insurance Providers Payer Name Payer Address Payer Phone Subscriber Number Group Number Insured Name Patient Relationship to Insured Coverage Start Date Coverage End Date [facility] [address] [place] [address] [id number] YUE FAJARDO Self - patient is the [...]
[2025-06-17 14:01] LABS: Resp Syncy Virus RNA Qual PCR NEGATIVE (Negative); SARS COV2 PCR INHOUSE NEGATIVE (Negative)
--- NOTE | 2025-06-17 14:25 | PC.NURSE ---
labs drawn, swab obtained, pt medicated for 6/10 pain per order, call gonsales within reach, plan of care ongoing
[2025-06-17 14:27] LABS: Appearance Urine Clear; Glucose Urine UA Negative (Negative); PH 7.5 (5.0-9.0); Specific Gravity - Urine 1.010 (1.005-1.025)
[2025-06-17 15:32] VITALS: BP 138/68; PULSE 99; RESP 18; TEMP 37; O2SAT 98
== END 2025-06-17 15:33 | disposition home or self-care (01) ==
PROVIDERS: Physician Assistant Medical; Emergency Provider Emergency Medicine
DX: J10.1 Influenza due to other identified influenza virus with other respiratory manifestations (principal); R05.9 Cough, unspecified; R51.9 Headache, unspecified; R42 Dizziness and giddiness; R53.83 Other fatigue; M79.10 Myalgia, unspecified site; R53.1 Weakness; I10 Essential (primary) hypertension; Z79.899 Other long term (current) drug therapy
CPT/HCPCS: 71046; 80053; 81003; 85025; 87637; 96374; 99284; J1885